=== PATIENT | female | born 1990 | race Caucasian/White ===

== ENCOUNTER 2019-12-20 16:45 | Emergency (ER) | payer OTHER ==
--- NOTE | 2019-12-20 17:15 | ED Physician Documentation ---
PD HPI FEMALE - Stated complaint Stated Complaint: FEMALE - Chief complaint Chief Complaint: UTI - History obtained from History obtained from: Patient - Additional information Additional information: Recently treated for UTI, did not initially know the name of the antibiotic, but it was Macrobid in hindsight. She did have some flank pain with it. On the Macrobid she did fine but dysuria, frequency, hematuria recurred today. 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 HEENT: None Psych: None Musculoskeletal: None Derm: None - Past Surgical History Past Surgical History: No - Present Medications Home Medications: Ambulatory Orders Medication Instructions Recorded Confirmed Phenazopyridine HCl [Pyridium] 200 mg PO TID PRN #6 tablet 12/20/19 Sulfamethoxazole/Trimethoprim 1 each PO BID 10 Days #20 tablet 12/20/19 [Sulfamethoxazole-Tmp Ds Tablet] - Allergies Allergies/Adverse Reactions: Allergies Allergy/AdvReac Type Severity Reaction Status Date / Time No Known Drug Allergies Allergy Verified 12/20/19 16:58 - Social History Does the pt smoke?: No Smoking Status: Never smoker Does the pt drink ETOH?: Yes Does the pt have substance abuse?: No - Immunizations Immunizations are current?: Yes PD ED PE NORMAL - Vitals Vital signs reviewed: Yes - General General: Alert and oriented X 3, No acute distress - Abdomen Abdomen: Soft, Non tender - Back Back: No CVA TTP - Neuro Neuro: Alert and oriented X 3, Normal speech Results - Vitals Vitals: Vital Signs - 24 hr 12/20/19 16:54 Temperature 36.8 C Heart Rate 80 Respiratory 18 Rate Blood Pressure 120/85 H O2 Saturation 98 Oxygen O2 Source Room air - Labs Labs: Laboratory Tests 12/20/19 17:02 Urine Color YELLOW Urine Clarity CLOUDY Urine pH 5.5 Ur Specific [place] >=1.030 H Urine Protein 100 H Urine Glucose (UA) NEGATIVE Urine Ketones NEGATIVE Urine Occult Blood LARGE H Urine Nitrite POSITIVE H Urine Bilirubin NEGATIVE Urine Urobilinogen 0.2 (NORMAL) Ur Leukocyte Esterase MODERATE H Urine RBC TNTC H Urine WBC >25 H Ur Squamous Epith Cells RARE Squamous Urine Bacteria Many H Urine Yeast PRESENT Ur Microscopic Review INDICATED Urine Culture Comments INDICATED Urine HCG, Qual NEGATIVE PD MEDICAL DECISION MAKING - ED course ED course: Given the treatment failure on Macrobid and mild flank pain that she had, wonder if this is early pyelonephritis. Treated with Bactrim and Pyridium. Full 10- day course this time. Culture pending. Also has some yeast, had discharge now gone, given 1 dose of Diflucan. Departure - Departure Disposition: 01 Home, Self Care Clinical Impression: Pyelonephritis Condition: Good Record reviewed to determine appropriate education?: Yes Instructions: Pyelonephritis Dc Prescriptions: Phenazopyridine HCl [Pyridium] 200 mg PO TID PRN #6 tablet PRN Reason: dysuria Sulfamethoxazole/Trimethoprim [Sulfamethoxazole-Tmp Ds Tablet] 1 each PO BID 10 Days #20 tablet Comments: We will culture your urine, the results should be done in 48-72 hours. If an antibiotic change is necessary we will call you. Return if worse in the meantime, especially if you develop increasing flank pain, fevers, or cannot keep down the medication.
[2019-12-20 17:16] LABS: BILIRUBIN,URINE NEGATIVE (NEGATIVE); GLUCOSE, URINE (UA) NEGATIVE (NEGATIVE); KETONES,URINE (UA) NEGATIVE (NEGATIVE); LEUKOCYTE ESTERASE, URINE MODERATE (NEGATIVE); NITRITE,URINE POSITIVE (NEGATIVE); OCCULT BLOOD,URINE LARGE (NEGATIVE); PH,URINE 5.5 PH (5.0-7.5); PROTEIN,URINE 100 mg/dL (NEGATIVE); UROBILINOGEN,URINE 0.2 (NORMAL) E.U./dL (NORMAL)
[2019-12-20 17:19] LABS: CLARITY,URINE CLOUDY (CLEAR); HCG UR QUAL NEGATIVE
[2019-12-20 17:24] LABS: BACTERIA,URINE Many /HPF (None Seen); RBC,URINE TNTC /HPF (0-5); SQUAMOUS EPITHELIAL CELL,UR RARE Squamous (<= Few); YEAST,URINE PRESENT
[2019-12-20] MEDS ORDERED: PHENAZOPYRIDINE 100 MG TABLET PO STA (17:28)
[2019-12-20] MEDS ORDERED: FLUCONAZOLE 100 MG TABLET PO STA (17:28)
[2019-12-20] MEDS ORDERED: SULFAMETH/TRIMETH DS 800/160 MG TABLET PO STA (17:28)
[2019-12-20 17:44] VITALS: BP 130/89
== END 2019-12-20 17:45 | disposition home or self-care (01) ==
LOC: ED 16:45
DX: N12 Tubulo-interstitial nephritis, not specified as acute or chronic (principal)
CPT/HCPCS: 81001; 81025; 87086; 87181; 99283; A9270; 81003

== ENCOUNTER 2020-05-06 04:19 | Emergency (ER) | payer OTHER ==
[2020-05-06 04:32] VITALS: BP 122/74
--- NOTE | 2020-05-06 04:43 | ED Physician Documentation ---
PD HPI HEENT - Stated complaint Stated Complaint: R EAR PX - Chief complaint Chief Complaint: Heent - History obtained from History obtained from: Patient - History of Present Illness Timing - onset: Yesterday Timing - details: Gradual onset, Constant, Waxing and waning Pain level now: 4 Location: Right ear Improves: Nothing Worsens: Swalllowing Associated symptoms: No: Fever, Trismus, Unable to swallow, Facial swelling, Cough Similar symptoms before: Has not had sx before Recently seen: No: Not recently seen - Additional information Additional information: c/o gradual onset right ear pain since yesterday AM. pain has steadily progressed, sharp and radiates down right anterolateral neck. denies h/o similar symptoms, denies injury. she I stilled hydrogen peroxide twice with mild improvement. Review of Systems Constitutional: reports: Reviewed and negative Ears: reports: Ear pain. 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 HEENT: None Psych: None Musculoskeletal: None Derm: None - Past Surgical History Past Surgical History: No - Present Medications Home Medications: Ambulatory Orders Medication Instructions Recorded Confirmed Amox/Clav 875/125 [Augmentin 1 each PO Q12H #14 tablet 05/06/20 875/125 Tab] Bcp 05/06/20 - Allergies Allergies/Adverse Reactions: Allergies Allergy/AdvReac Type Severity Reaction Status Date / Time No Known Drug Allergies Allergy Verified 05/06/20 04:32 - Social History Does the pt smoke?: No Smoking Status: Never smoker Does the pt drink ETOH?: Yes Does the pt have substance abuse?: No - Immunizations Immunizations are current?: Yes - POLST Patient has POLST: No PD ED PE NORMAL - Vitals Vital signs reviewed: Yes - General General: Alert and oriented X 3, No acute distress, Well developed/nourished - HEENT HEENT: Moist mucous membranes, Pharynx benign PD ED PE EXPANDED - HEENT HEENT: R TM dull, R TM bulging. No: R TM red Results - Vitals Vitals: Vital Signs - 24 hr 05/06/20 04:25 Temperature 36.4 C L Heart Rate 68 Respiratory 16 Rate Blood Pressure 122/74 O2 Saturation 98 Oxygen O2 Source Room air PD MEDICAL DECISION MAKING - ED course Complexity details: considered differential, d/w patient ED course: right TM has noticeable bulging, dull light reflex, trace erythema. suspect early AOM, given augmentin with rx for same, advised to f/u PCP in 2-3 days if nit improving, return if worse. Departure - Departure Disposition: 01 Home, Self Care Clinical Impression: Otitis media Condition: Good Instructions: ED Otitis Media Acute Adult Follow-Up: [facility] [Provider Group] Prescriptions: Amox/Clav 875/125 [Augmentin 875/125 Tab] 1 each PO Q12H #14 tablet Discharge Date/Time: 05/06/20 05:05
[2020-05-06] MEDS ORDERED: AMOX/CLAV 875 MG/125 MG TABLET PO STA (04:57)
== END 2020-05-06 05:05 | disposition home or self-care (01) ==
LOC: ED 04:19
DX: H66.91 Otitis media, unspecified, right ear (principal)
CPT/HCPCS: 99282; 99283; A9270

== ENCOUNTER 2020-09-25 11:00 | Outpatient (CLI) | payer OTHER | END 2020-09-25 23:59 | disposition home or self-care (01) | LOC: LAB.N 11:00 | PROVIDERS: ATTEND Physician Assistant Medical | DX: R05 Cough (principal); Z20.822 Contact with and (suspected) exposure to COVID-19 ==

== ENCOUNTER 2021-02-09 04:40 | Emergency (ER) | payer OTHER ==
[2021-02-09 04:48] VITALS: BP 147/87
--- NOTE | 2021-02-09 05:34 | ED Physician Documentation ---
PD HPI NECK PAIN - Stated complaint Stated Complaint: NECK PX - Chief complaint Chief Complaint: General - History obtained from History obtained from: Patient - History of Present Illness Timing - onset: How many years ago (11) Timing - duration: Years Timing - details: Gradual onset, Still present, Waxing and waning Location: Lower, Right Quality: Pain, Spasm, Sharp, Similar to prior episodes Associated symptoms: No: Fever, Weakness, Numbness, Incontinent of urine, Unable to urinate, Hematuria, Incontinent of stool Improves with: Rest, Meds Worsened by: Movement Contributing factors: Twisting Similar symptoms before: Diagnosis (torticollis) Recently seen: Clinic - Additional information Additional information: 30 y/o female without known neck or head injury has had trouble with a stiff neck and pain for the past year. She has had flares of this pain and cyclobenzaprine has helped. She has gone in to see the practitioner at [facility] and has had adjustment of the lumbar spine and neck which helped the lumbar spine but not the neck. She did go back and got a shot of tordal which helped but tonight she has not been able to sleep and has pain radiating down the right arm. Review of Systems Constitutional: denies: Fever Nose: denies: Congestion Cardiac: denies: Chest pain / pressure Respiratory: denies: Dyspnea, Cough GI: denies: Abdominal Pain, Nausea, Vomiting, Constipation, Diarrhea : denies: Dysuria, Frequency Skin: denies: Rash Musculoskeletal: reports: Neck pain, Extremity pain. 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 HEENT: None Psych: None Musculoskeletal: None Derm: None - Past Surgical History Past Surgical History: No - Present Medications Home Medications: Ambulatory Orders Medication Instructions Recorded Confirmed Amox/Clav 875/125 [Augmentin 1 each PO Q12H #14 tablet 05/06/20 875/125 Tab] Bcp 05/06/20 Cyclobenzaprine [Flexeril] 10 mg PO TID PRN #20 tablet 02/09/21 HYDROcod/ACETAM 5/325 [[place] 5/325] 1 - 2 tablet PO Q6H PRN #14 tablet 02/09/21 - Allergies Allergies/Adverse Reactions: Allergies Allergy/AdvReac Type Severity Reaction Status Date / Time No Known Drug Allergies Allergy Verified 02/09/21 04:46 - Social History Does the pt smoke?: No Smoking Status: Never smoker Does the pt drink ETOH?: Yes Does the pt have substance abuse?: No - Immunizations Immunizations are current?: Yes - POLST Patient has POLST: No PD ED PE NORMAL - Vitals Vital signs reviewed: Yes (hypertensive ) - General General: Alert and oriented X 3, No acute distress, Well developed/nourished - HEENT HEENT: Atraumatic, PERRL, EOMI - Neck Neck: Supple, no meningeal sign, No bony TTP, Other (right trapezius tenderness that extends to the insertion to the occiput and over to the insertion of the spinal accessory over the supraspinatous. 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, No motor deficit, No sensory deficit, Normal speech Eye Opening: Spontaneous Motor: Obeys Commands Verbal: Oriented GCS Score: 15 - Psych Psych: Normal mood, Normal affect Results - Vitals Vitals: Vital Signs - 24 hr 02/09/21 04:46 Temperature 36.9 C Heart Rate 71 Respiratory 18 Rate Blood Pressure 147/87 H O2 Saturation 98 Oxygen O2 Source Room air PD MEDICAL DECISION MAKING - ED course Complexity details: reviewed old records, reviewed results, re-evaluated patient, considered differential, d/w patient ED course: 30 y/o female with exacerbation of chronic torticollis is administered PO decadron and IM tordal and we will put her on a short course of pain medication and muscle relaxant. Departure - Departure Disposition: 01 Home, Self Care Clinical Impression: Torticollis, Cervical radiculopathy Condition: Stable Instructions: ED Spasm Neck No Injury, ED Cervical Radiculopathy Follow-Up: [facility]LIN[facility] [Provider Group] Prescriptions: Cyclobenzaprine [Flexeril] 10 mg PO TID PRN #20 tablet PRN Reason: Spasms HYDROcod/ACETAM 5/325 [[place] 5/325] 1 - 2 tablet PO Q6H PRN #14 tablet PRN Reason: Pain Comments: Yonas, today it looks like the radiation of the pain down your arm represents cervical radiculopathy or a pinched nerve in the neck. This is an indication to do an MRI if you do not have relief within the month. Today we have given you a single dose of decadron and tordal and there is a prescription for flexeril and norco that has been e-scribed to [facility] in [place]. Discharge Date/Time: 02/09/21 06:04
[2021-02-09] MEDS ORDERED: DEXAMETHASONE 10 MG/ML VIAL PO STA (05:42)
[2021-02-09] MEDS ORDERED: CHERRY SYRUP 10 ML UDC PO ONE (05:42)
[2021-02-09] MEDS ORDERED: KETOROLAC 60 MG/2 ML VIAL IM STA (05:42)
== END 2021-02-09 06:04 | disposition home or self-care (01) ==
LOC: ED 04:40
DX: M43.6 Torticollis (principal); M54.12 Radiculopathy, cervical region
CPT/HCPCS: 96372; 99283; 99284; A9270

== ENCOUNTER 2022-07-21 17:52 | Emergency (ER) | payer OTHER ==
--- NOTE | 2022-07-21 18:24 | ED Physician Documentation ---
PD HPI LOWER EXT INJURY - Stated complaint Stated Complaint: LT ANKLE INJURY - Chief complaint Chief Complaint: Ext Problem - History obtained from History obtained from: Patient - History of Present Illness PD HPI LOW EXT INJURY LOCATION: Left, Ankle Type of injury: Twist Timing - onset: Today Timing - details: Abrupt onset, Still present Worsened by: Moving, Palpating Associated symptoms: Weakness (pain limits the full ROM of the ankle.), Swelling Contributing factors: No: Anticoagulated Similar symptoms before: Has not had sx before Review of Systems Skin: denies: Abrasion (s), Laceration (s) Musculoskeletal: reports: Joint swelling Neurologic: denies: Focal weakness, Numbness PD PAST MEDICAL HISTORY - Past Medical History Cardiovascular: None Respiratory: None Neuro: None Endocrine/Autoimmune: None GI: None 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 : None HEENT: None Psych: None Musculoskeletal: None Derm: None - Past Surgical History Past Surgical History: No - Present Medications Home Medications: Ambulatory Orders Medication Instructions Recorded Confirmed Fluoxetine HCl [Prozac] 40 mg ORAL ONCE 07/21/22 07/21/22 - Allergies Allergies/Adverse Reactions: Allergies Allergy/AdvReac Type Severity Reaction Status Date / Time No Known Drug Allergies Allergy Verified 02/09/21 04:46 - Social History Does the pt smoke?: No Smoking Status: Never smoker Does the pt drink ETOH?: Yes Does the pt have substance abuse?: No - Immunizations Immunizations are current?: Yes - POLST Patient has POLST: No PD ED PE NORMAL - Vitals Vital signs reviewed: Yes - General General: Alert and oriented X 3, No acute distress, Well developed/nourished - Derm Derm: Normal color, Warm and dry - Extremities Extremities: Other (left lateral ankle and proximal foot with swelling and tenderness. No gross laxity with inversion stress. ) - Neuro Neuro: No motor deficit, No sensory deficit Results - Vitals Vitals: Oxygen O2 Source Room air - Rads (name of study) left ankle Relevant Findings:: Prelim report reviewed, EMP independent interpretation of test (no fractures and mortis appears in good position. ), See rad report PD Medical Decision Making - ED course Complexity details: considered differential (inversion injury stepping onto edge of step. Pain laterally. Too painful for walking. Denies other injury. ), d/w patient Departure - Departure Disposition: 01 Home, Self Care Clinical Impression: Ankle sprain Qualifiers: Encounter type: initial encounter Involved ligament of ankle: anterior talofibular ligament Laterality: left Qualified Code(s): S93.492A - Sprain of other ligament of left ankle, initial encounter Condition: Stable Record reviewed to determine appropriate education?: Yes Instructions: ED Sprain Ankle Comments: Your x-ray does not show any fractures in my view. The radiology final report is not yet resulted. The x-ray of your ankle does incorporate enough of the foot to feel there are no fractures there either. This does seem to be a ankle sprain but still can hurt quite a bit and take a while to heal. To begin with ice elevate and rest your ankle often to reduce swelling. Use the ankle brace to support movement. Use crutches for nonweightbearing initially until improved enough to walk on it. As it is improving its okay to start weightbearing. I would continue with ankle support when walking or activity for even up to 3 weeks until fully healed. I would not anticipate improvement over the next several days and then more so over the first week to week and a half. However can be several weeks or more to be fully back to normal if there is partial tears of the ligaments. Tylenol ibuprofen as needed for pains. Follow-up with your primary care or orthopedic clinic if not improving in the expected timeframe. Forms: Activity restrictions Discharge Date/Time: 07/21/22 19:18
[2022-07-21] MEDS ORDERED: IBUPROFEN 600 MG TABLET PO STA (18:41)
--- NOTE | 2022-07-21 19:01 | XRAY Report ---
PROCEDURE: Ankle 3 View LT INDICATIONS: Trauma TECHNIQUE: 3 views of the ankle were acquired. COMPARISON: None. FINDINGS: Bones: No fractures or dislocations. Ankle mortise is normally aligned. No suspicious bony lesions . Soft tissues: No tibiotalar joint effusion. Achilles tendon appears normal. IMPRESSION: Intact left ankle. Reviewed by: Sylvia Root MD on 07/21/2022 5:59 PM JACQUES Approved by: Sylvia Root MD on 07/21/2022 5:59 PM JACQUES Station ID: [id number]
[2022-07-21 19:19] VITALS: BP 137/71
== END 2022-07-21 19:18 | disposition home or self-care (01) ==
LOC: ED 17:52
DX: S93.492A Sprain of other ligament of left ankle, initial encounter (principal); W10.9XXA Fall (on) (from) unspecified stairs and steps, initial encounter; X50.1XXA Overexertion from prolonged static or awkward postures, initial encounter; Y93.89 Activity, other specified
CPT/HCPCS: 73610; 99283; A9270

== ENCOUNTER 2022-10-03 08:00 | Outpatient (CLI) | payer OTHER ==
[2022-10-03 15:47] LABS: BILIRUBIN,URINE NEGATIVE (NEGATIVE); GLUCOSE, URINE (UA) NEGATIVE (NEGATIVE); KETONES,URINE (UA) NEGATIVE (NEGATIVE); LEUKOCYTE ESTERASE, URINE NEGATIVE (NEGATIVE); NITRITE,URINE NEGATIVE (NEGATIVE); OCCULT BLOOD,URINE TRACE-LYSE (NEGATIVE); PROTEIN,URINE NEGATIVE (NEGATIVE); UROBILINOGEN,URINE 0.2 (NORMAL) E.U./dL (NORMAL)
[2022-10-03 15:49] LABS: CLARITY,URINE CLOUDY (CLEAR)
[2022-10-03 16:06] LABS: AMORPHOUS SEDIMENT,UR Marked /LPF; BACTERIA,URINE Rare /HPF (None Seen); RBC,URINE 0-5 /HPF (0-5); SQUAMOUS EPITHELIAL CELL,UR FEW Squamous (<= Few); WBC,URINE 0-3 /HPF (0-5)
== END 2022-10-03 23:59 | disposition home or self-care (01) ==
LOC: LAB.WC 08:00
PROVIDERS: ATTEND Obstetrics & Gynecology
DX: Z34.90 Encounter for supervision of normal pregnancy, unspecified, unspecified trimester (principal)
CPT/HCPCS: 81001; 87086

== ENCOUNTER 2022-10-14 22:55 | Outpatient (CLI) | payer OTHER ==
--- NOTE | 2022-10-15 10:49 | Ultrasound Report ---
PROCEDURE: OB First Trimester w/TV INDICATIONS: POSITIVE TEST OUTSIDE/PRIOR DATING DATA: Last menstrual period (LMP): 08/13/2022. LMP-based estimated date of delivery (COLEEN): 05/20/2023. First dating scan (date and location): 10/14/2022. Estimated date of delivery (COLEEN) from first dating scan: 05/18/2023. TECHNIQUE: Real-time scanning was performed of the fetus and maternal pelvic organs, with image documentation. Endovaginal scanning was also performed to better visualize the fetus and maternal ovaries. COMPARISON: None. FINDINGS: Intrauterine gestational sac present. Embryo: Present, measuring 2.4 cm, corresponding to 9 weeks 1 day. Heart rate: 171 bpm. Other: No perigestational fluid collection. Measurement variability in dating: +/- 4 weeks by LMP, +/- 7 days by mean sac diameter (use before 6 weeks gestation if crown-rump length not able to be measured), +/- 5 days by crown-rump length (6-12 weeks gestation). Maternal organs: Ovaries appear within normal limits. IMPRESSION: Single living intrauterine at 9 weeks 1 day, COLEEN of 05/18/2023. Findings are concordant with dating by LMP. Reviewed by: Christiano Rivas on 10/15/2022 10:47 AM PDT Approved by: Christiano Rivas on 10/15/2022 10:47 AM PDT Station ID: [id number]
== END 2022-10-14 22:56 | disposition home or self-care (01) ==
LOC: DI 22:55
PROVIDERS: ATTEND Obstetrics & Gynecology
DX: Z34.91 Encounter for supervision of normal pregnancy, unspecified, first trimester (principal)

== ENCOUNTER 2022-10-31 08:00 | Outpatient (CLI) | payer OTHER ==
[2022-10-31 21:26] LABS: CHLAMYDIA TRACHOMATIS DNA NEGATIVE (NEGATIVE); NEISSERIA GONORRHOEAE DNA NEGATIVE (NEGATIVE); TRICHOMONAS VAGINALIS DNA NEGATIVE (NEGATIVE)
== END 2022-10-31 23:59 | disposition home or self-care (01) ==
LOC: LAB.WC 08:00
PROVIDERS: ATTEND Obstetrics & Gynecology
DX: Z11.3 Encounter for screening for infections with a predominantly sexual mode of transmission (principal)
CPT/HCPCS: 87491; 87591; 87661

== ENCOUNTER 2022-11-27 10:31 | Observation (INO) | payer OTHER ==
[~2022-11-27 10:31] MED LIST: FLUoxetine 10 MG CAPSULE PO ONE
[2022-11-27] MEDS ORDERED: LACTATED RINGERS 500 ML IV ONE (10:50)
[2022-11-27] MEDS ORDERED: PROMETHAZINE 25 MG SUPP PR PRN (10:52)
[2022-11-27] MEDS ORDERED: SCOPOLAMINE PATCH TOP PRN (10:52)
[2022-11-27] MEDS ORDERED: DEXTROSE 5%-LACTATED RINGERS 1,000 ML IV SCH (11:00)
[2022-11-27 11:24] LABS: BASOPHILS % (AUTO) 0.3 %; EOSINOPHILS # (AUTO) 0.2 10^3/uL (0.0-0.7); EOSINOPHILS % (AUTO) 1.2 %; HCT - HEMATOCRIT 37.4 % (37.0-47.0); HGB - HEMOGLOBIN 12.5 g/dL (12.0-16.0); LYMPHOCYTES # (AUTO) 2.6 10^3/uL (1.5-3.5); MEAN CORPUSCULAR HEMOGLOBIN 29.3 pg (27.0-31.0); MEAN CORPUSCULAR HGB CONC 33.4 g/dL (32.0-36.0); MEAN CORPUSCULAR VOLUME 87.8 fL (81.0-99.0); MEAN PLATELET VOLUME 10.3 fL (7.9-10.8); MONOCYTES # (AUTO) 0.6 10^3/uL (0.0-1.0); MONOCYTES % (AUTO) 4.9 %; NEUTROPHILS # (AUTO) 9.5 10^3/uL (1.5-6.6); NEUTROPHILS % (AUTO) 73.1 %; PLT - PLATELET COUNT 300 10^3/uL (130-450); RED BLOOD COUNT 4.26 10^6/uL (4.20-5.40); RED CELL DISTRIBUTION WIDTH 12.3 % (12.0-15.0)
[2022-11-27 11:51] VITALS: O2SAT 99
--- NOTE | 2022-11-27 12:08 | HISTORY & PHYSICAL EXAMINATION ---
History and Physical - History and Physical HPI: 32y/o G-1 COLEEN 05/20/2023 Here for routine ob at 15+1 wks. Having N/V would like to discuss other RX, constipation is worse, HOWELL on and off and no appetite. Feels like not drinking enough she says she tries but wants to know what else she can do. Will walk over today and do lab work. Informed of FAS and will order today. ...................................................................Bonita Lux November 27, 2022 9:52 AM. Patient is miserable, vomiting. unable to keep any fluids down at all. not able to eat. ondansetron does not really help consistently. takes fluxetine and is able to get that down. constipation is quite bad. she has no appetite and then occassionally is very hungry. Not at all how she expected her early to be like. sad and frustrated. Allergies: Allergies Reviewed: Done No Known Allergies Medications: Meds Reviewed: Done Valtrex 500 mg tablet (valacyclovir) 1 tablet by mouth twice a day * aspirin 81 81mg tablet 1 tablet by mouth once a day ondansetron HCl 4 mg tablet (ondansetron hcl) 1 tablet by mouth six times a day as needed * vitamin Prozac 40 mg capsule (fluoxetine) Problems: 15 weeks gestation of (ETF81-W6U.15) Hyperemesis gravidarum antepartum (ICD-643.93) (OZA11-W87.0) Unspecified pre-existing hypertension complicating , second trimester (ICD-642.03) (SWW57-E26.912) Anxiety depression (ICD-300.4) (GDY49-C95.8) Herpesviral vulvovaginitis (JYZ71-M12.04) Supervision of normal (ICD-V22.1) (URV59-U89.90) Past Medical History: Reviewed and updated today: Depression/anxiety seizures as teen, 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 no diagnosis ever made after extensive work up. genital herpes. takes valtrex daily hypertension - never needed medication. better when she left the [employer]. Social History Summary: to [place]. grew up in [place]. Risk Factors-[facility]: Smoked Tobacco Use: Never smoker Smokeless Tobacco Use: Never Vaping / e-cigarette use: Never Passive Smoke Exposure: no HIV High Risk Behavior: no Exercise: no Alcohol Use: no Drug Use: no Marijuana Use: no Vital Signs: Patient Profile: 32 Years Old Female Height: 69 inches Weight: 244 pounds BMI: 36.16 BP sittin / 80 Cuff size: large Pt. in pain? no Vitals Entered By: Bonita Lux (November 27, 2022 9:52 AM) Meds Reviewed: Done Allergies Reviewed: Done No known allergies: T [DR-Umspretx-Kimmp-[facility]] Flowsheet View for Follow-up Visit Estimated weeks of gestation: 15 03/02 Weight: 244 Blood pressure: 130 / 80 Nausea/vomiting: freq Edema: 0 FHR: 150 Comment: very miserable with n/v. will admit for observation, hydration. still needs labs. LMP: 08/13/22 COLEEN by LMP: 05/20/23 US: 10/15/2022 9+1 Final COLEEN: 05/18/2023 Problems: BMI>30 Pre- Weight:255.6 BMI: 37.88 PAP: due GC/CT: collected 10/31- Negative HSV: both her and partner Genetic testing: [ ] ordered Oct Covid: vaccinated Flu: given 10/31 FAS: ordered 11/27 [employer] Review of Systems General: Complains of fatigue, constipation. Denies fevers, chills, weight loss. Gastrointestinal: Complains of nausea, vomiting, heartburn, change in bowel habits. Genitourinary: Denies discharge, blood in urine. Psychiatric: Complains of lack of energy, decreased appetite. Physical Constitutional: alert, no acute distress, appropriate dress. Skin: normal turgor, normal color. Respiratory: no respiratory distress. Abdomen: nondistended, nontender. Psych: affect and mood appropriate, normal interaction, good eye contact. deferred pelvic exam Impression & Recommendations: Problem # 1: Hyperemesis gravidarum antepartum (ICD-643.93) (BHQ62-C99.0) admit for observation, labs, medication, hydration until she is able to keep something down. patient agrees. happy to do anything to feel better. Problem # 2: Unspecified pre-existing hypertension complicating , second trimester (ICD-642.03) (RIM05-L28.912) blood pressure normal today. taking aspirin. P: 0 A: 0 LMP: 08/13/2022 EDC: 05/20/2023 Height: 69 (10/31/2022 1:53:23 PM) Weight: 244 Weight (pre-): 255.6 (10/03/2022 9:40:53 AM) Chlamydia: NEGATIVE (10/31/2022 3:06:00 PM) Is pt sexually active? yes Chlamydia: NEGATIVE (10/31/2022 3:06:00 PM)
[2022-11-27 12:54] LABS: ESTIMATED AVERAGE GLUCOSE 97 mg/dL (70-100)
[2022-11-27 15:06] LABS: ALBUMIN 3.6 g/dL (3.2-5.5); ALBUMIN/GLOBULIN RATIO 1.6 (1.0-2.2); BILIRUBIN,TOTAL 0.2 mg/dL (0.2-1.0); CALCIUM 9.2 mg/dL (8.5-10.3); CREATININE 0.5 mg/dL (0.6-1.3); TOTAL PROTEIN 5.9 g/dL (6.4-8.9)
[2022-11-27 16:38] VITALS: BP 119/60
--- NOTE | 2022-11-27 17:58 | DISCHARGE SUMMARY ---
Discharge Summary Admit Date: 11/27/22 Discharge Date: 11/27/22 Discharging Provider: Gloria Perez MD Code Status: Attempt Resuscitation Discharge Disposition: 01 Home, Self Care - DIAGNOSES Admission Diagnoses: hyperemesis gravidarum. improved. - HPI History of Present Illness: Yonas has been unable to keep anything down for days. She is exhausted and tired of vomiting. She came to the office today and was wretching in the bathroom. She has zofran at home but it makes her very constipated and so that is an issue. And it does not work that well for her. She would very much like to feel better. - HOSPITAL COURSE Hospital Course: She was admitted for observation, given iv fluids. had labs done, which were n ormal. She had a rectal dose of phenergan after which she slept for a few hours and woke up feeling better. She also had a scopolomine patch placed. She was able to eat when she woke up and was able to go home. - ALLERGIES Allergies/Adverse Reactions: Allergies Allergy/AdvReac Type Severity Reaction Status Date / Time No Known Drug Allergies Allergy Verified 02/09/21 04:46 - MEDICATIONS Home Medications: Ambulatory Orders Medication Instructions Recorded Confirmed Fluoxetine HCl [Prozac] 40 mg ORAL ONCE 07/21/22 07/21/22 Docusate Sodium 100Mg Capsule 100 - 200 mg PO BID PRN #60 cap 11/27/22 [Colace 100Mg Capsule] Famotidine [Pepcid] 20 mg PO BID PRN #90 tablet 11/27/22 Promethazine Supp [Phenergan Supp] 25 mg MN BID PRN #30 supp 11/27/22 - PHYSICAL EXAM AT DISCHARGE General Appearance: positive: No acute distress, Alert Respiratory: positive: No respiratory distress - LABS Result Diagrams: 11/27/22 11:05 11/27/22 11:53 - DIAGNOSTIC IMAGING Diagnostic Imaging Results Comments: none - FOLLOW UP Follow Up: In clinic in 4 weeks. sooner if she is vomiting and unable to keep liquids down. - TIME SPENT Time Spent in Discharge (Minutes): 15
[2022-11-27] MEDS ORDERED: FLUoxetine 10 MG CAPSULE PO SCH (21:00)
[2022-11-28 02:08] LABS: HBsAG SCREEN Negative (Negative); HCV AB Non Reactive (Non Reactive); HIV SCREEN 4TH GENERATION Non Reactive (Non Reactive)
[2022-11-28 07:10] LABS: RPR Non Reactive (Non Reactive)
[2022-11-28 08:10] LABS: VARICELLA-ZOSTER AB IGG 414 index (Immune >165)
== END 2022-11-27 18:30 | disposition home or self-care (01) ==
LOC: FBP 10:31
PROVIDERS: ADMIT Obstetrics & Gynecology; ATTEND Obstetrics & Gynecology
DX: O21.0 Mild hyperemesis gravidarum (principal); O10.912 Unspecified pre-existing hypertension complicating pregnancy, second trimester; O99.342 Other mental disorders complicating pregnancy, second trimester; F32.A Depression, unspecified; F41.9 Anxiety disorder, unspecified; Z3A.15 15 weeks gestation of pregnancy; Z79.82 Long term (current) use of aspirin; Z79.899 Other long term (current) drug therapy; O9A.212 Injury, poisoning and certain other consequences of external causes complicating pregnancy, second trimester; O99.612 Diseases of the digestive system complicating pregnancy, second trimester; K59.03 Drug induced constipation; T45.0X5A Adverse effect of antiallergic and antiemetic drugs, initial encounter; Y92.009 Unspecified place in unspecified non-institutional (private) residence as the place of occurrence of the external cause; O98.312 Other infections with a predominantly sexual mode of transmission complicating pregnancy, second trimester; A60.04 Herpesviral vulvovaginitis
CPT/HCPCS: 36415; 80053; 83036; 84443; 85025; 86592; 86762; 86787; 86803; 86850; 86900; 86901; 87340; 87389; 96360; 96361; A9270; G0378; J3490; J7120; J8498

== ENCOUNTER 2022-12-26 08:00 | Outpatient (CLI) | payer OTHER ==
[2022-12-26 15:55] LABS: BILIRUBIN,URINE NEGATIVE (NEGATIVE); GLUCOSE, URINE (UA) NEGATIVE (NEGATIVE); KETONES,URINE (UA) NEGATIVE (NEGATIVE); LEUKOCYTE ESTERASE, URINE NEGATIVE (NEGATIVE); NITRITE,URINE NEGATIVE (NEGATIVE); OCCULT BLOOD,URINE NEGATIVE (NEGATIVE); PH,URINE 7.5 PH (5.0-7.5); PROTEIN,URINE NEGATIVE (NEGATIVE); UROBILINOGEN,URINE 0.2 (NORMAL) E.U./dL (NORMAL)
[2022-12-26 16:17] LABS: BACTERIA,URINE Rare /HPF (None Seen); CLARITY,URINE CLEAR (CLEAR); RBC,URINE None Seen /HPF (0-5); SQUAMOUS EPITHELIAL CELL,UR MOD Squamous (<= Few); WBC,URINE 0-3 /HPF (0-5)
[2022-12-26 16:18] LABS: AMORPHOUS SEDIMENT,UR Few /LPF
== END 2022-12-26 23:59 | disposition home or self-care (01) ==
LOC: LAB.WC 08:00
PROVIDERS: ATTEND Obstetrics & Gynecology
DX: Z34.90 Encounter for supervision of normal pregnancy, unspecified, unspecified trimester (principal)
CPT/HCPCS: 81001; 87086

== ENCOUNTER 2022-12-30 10:59 | Outpatient (CLI) | payer OTHER ==
--- NOTE | 2022-12-30 16:05 | Ultrasound Report ---
PROCEDURE: OB Detailed Eval INDICATIONS: HYPERTENSION COMPLICATING OUTSIDE/PRIOR DATING DATA: Last menstrual period (LMP): 08/13/2022. LMP-based estimated date of delivery (COLEEN): 05/20/2023. First dating scan (date and location): 10/14/2022. Estimated date of delivery (COLEEN) from first dating scan: 05/18/2023. The below data below was generated using the sonographic COLEEN of 05/18/2023 TECHNIQUE: Real-time scanning was performed of the fetus, with image documentation and biometric measurements. Endovaginal scanning: Not performed COMPARISON: 10/14/2022 FINDINGS: General: A single living intrauterine gestation is present. Presentation: Variable Placenta: Placental position is posterior, without previa. Amniotic fluid index: 11.3 cm, within normal limits for gestational age. heart rate: 140 beats per minute. Maternal cervical canal: Closed and 7.7 cm long; normal length is 2.5 cm or more. biometrics: Biparietal diameter: 4.9 cm, 20 weeks 6 days, 76th percentile Head circumference: 18.47 m, 20 weeks 5 days, 69th percentile Abdominal circumference: 16.2 cm, 21 weeks 2 days, 81st percentile Femur length: 3.5 cm, 20 weeks 6 days, 68th percentile Estimated gestational age from initial scan: 20 weeks 1 day Composite gestational age from present scan: 20 weeks 4 days Estimated weight and percentile: 396 g, 90th percentile Measurement variability in biometric dating: +/- 10 days from 12-20 weeks gestation, +/- 2 weeks from 20-30 weeks gestation, +/- 3 weeks at 30 weeks gestation or later. Anatomic survey: Neuro: Ventricles are normal at less than 10 mm. Cisterna magna is normal at 3-11 mm. Cerebellum i s normal in size and morphology. There are bilateral choroid plexus cysts, the right measuring 8 mm in the left measuring 9 mm. Nuchal skin fold: Normal at less than 6 mm between 14 and 20 weeks gestational age. Face: Nose and lips, appear within normal limits. Facial profile was not seen. Spine: No evidence for spina bifida. Heart: 4-chambered heart is present. Cardiac outflow tracts were not well imaged. Diaphragm: Diaphragm is intact. Stomach: Left-sided stomach is present. Kidneys: No hydronephrosis. Normal is less than 5 mm in 2nd trimester, less than 7 mm in 3rd trimester. Cord: 3 vessel cord has orthotopic insertion. Bladder: Normal in size. Extremities: All 4 extremities are visualized. IMPRESSION: 1. Single intrauterine with appropriate growth. 2. Estimated weight at the 90th percentile. 3. There several normal structures seen, however cardiac outflow tracts and facial profil e were not well seen. 4. There are bilateral choroid plexus cysts which are likely incidental. 5. Follow-up for completion of anatomic survey in one week is recommended. Reviewed by: Sylvia Root MD on 12/30/2022 4:03 PM PST Approved by: Sylvia Root MD on 12/30/2022 4:03 PM PST Station ID: [id number]
== END 2022-12-30 11:00 | disposition home or self-care (01) ==
LOC: DI 10:59
PROVIDERS: ATTEND Obstetrics & Gynecology
DX: O10.912 Unspecified pre-existing hypertension complicating pregnancy, second trimester (principal); Z3A.20 20 weeks gestation of pregnancy

== ENCOUNTER 2023-01-01 17:11 | Observation (INO) | payer OTHER ==
[2023-01-01] MEDS ORDERED: LACTATED RINGERS 1,000 ML IV ONE (17:46)
[2023-01-01] MEDS ORDERED: PROCHLORPERAZINE 10 MG/2 ML VIAL IVP PRN (17:47)
[2023-01-01] MEDS ORDERED: SCOPOLAMINE PATCH TOP PRN (17:47)
[2023-01-01] MEDS ORDERED: DEXTROSE 5%-LACTATED RINGERS 1,000 ML IV SCH (18:00)
[2023-01-01 18:33] LABS: ALBUMIN 3.8 g/dL (3.2-5.5); ALBUMIN/GLOBULIN RATIO 1.3 (1.0-2.2); BILIRUBIN,TOTAL 0.3 mg/dL (0.2-1.0); CALCIUM 9.2 mg/dL (8.5-10.3); CREATININE 0.5 mg/dL (0.6-1.3); POTASSIUM 3.6 mmol/L (3.5-4.5); TOTAL PROTEIN 6.7 g/dL (6.4-8.9)
[2023-01-01] MEDS ORDERED: MAGNESIUM SULFATE 1 GM in SODIUM CHLORIDE 0.9% 50 ML IV ONE (19:30)
--- NOTE | 2023-01-01 19:34 | HISTORY & PHYSICAL EXAMINATION ---
Admit History - Visit Reason Visit Reason: Other (hyperemesis at 20 weeks.) - : 1 Care: positive: [facility] Risk/History: positive: Other (obesity.) Smoking Status: Never smoker - Other Maternal History Other Maternal History: anatomy screen Friday. some views are missing. follow up ordered. nothing abnormal seen. Meds/Allgy - Home Medications Home Medications: Ambulatory Orders Medication Instructions Recorded Confirmed Fluoxetine HCl [Prozac] 40 mg ORAL ONCE 07/21/22 07/21/22 Docusate Sodium 100Mg Capsule 100 - 200 mg PO BID PRN #60 cap 11/27/22 [Colace 100Mg Capsule] Famotidine [Pepcid] 20 mg PO BID PRN #90 tablet 11/27/22 Promethazine Supp [Phenergan Supp] 25 mg [place] BID PRN #30 supp 11/27/22 - Allergies Allergies/Adverse Reactions: Allergies Allergy/AdvReac Type Severity Reaction Status Date / Time No Known Drug Allergies Allergy Verified 02/09/21 04:46 Review of Systems - Constitutional Constitutional: reports: Fatigue, Malaise - Respiratory Respiratory: denies: SOB at rest - Gastrointestinal Gastrointestinal: reports: Abdominal pain (low abd cramping. last bm yesterday.), Vomiting, Bile emesis, Poor appetite. denies: Nausea (not nauseated just vomits all of a sudden. awful. now just bile so she came in.) Physical - Abdominal Exam Vital Signs: vital signs per RN. appears tired and sad. not vomiting while I was in room with her. abdomen soft. FHT in normal range. only 20 weeks so no strip done. Plan for Labor - Plan For Labor I expect patient to be DC'd or transferred within 96 hours.: Yes Plan for Labor: admit for observation. hydration, compazine, scopalamine, iv fluids. low in magnesium so will replace. if she can stop vomiting, she can go home tonight, regardless of whether or not she eats. I don't really want her to try to eat until tomorrow am to take a break. does have zofran at home but it was not helping. has phenergan suppository but did not try as makes her want to poop so she waits until after she has gone. had a scope patch on and took off yesterday. seems to have been helping some. will place now. time spent with her 30 min
--- NOTE | 2023-01-01 22:42 | DISCHARGE SUMMARY ---
Discharge Summary Admit Date: 01/01/23 Discharge Date: 01/01/23 Code Status: Attempt Resuscitation Condition at Discharge: Good Discharge Disposition: 01 Home, Self Care - DIAGNOSES Admission Diagnoses: hyperemesis, hypomagnesemia Discharge Diagnoses with Status of Each Condition: both improved - HPI History of Present Illness: miserable with her vomiting. bilous now. came for hydration and iv meds. - HOSPITAL COURSE Hospital Course: IV hydration and iv magnesium given. compazine and scope patch. felt better. - ALLERGIES Allergies/Adverse Reactions: Allergies Allergy/AdvReac Type Severity Reaction Status Date / Time No Known Drug Allergies Allergy Verified 02/09/21 04:46 - MEDICATIONS Home Medications: Ambulatory Orders Medication Instructions Recorded Confirmed Fluoxetine HCl [Prozac] 40 mg ORAL ONCE 07/21/22 07/21/22 Docusate Sodium 100Mg Capsule 100 - 200 mg PO BID PRN #60 cap 11/27/22 [Colace 100Mg Capsule] Famotidine [Pepcid] 20 mg PO BID PRN #90 tablet 11/27/22 Promethazine Supp [Phenergan Supp] 25 mg [place] BID PRN #30 supp 11/27/22 - PHYSICAL EXAM AT DISCHARGE General Appearance: positive: No acute distress Extremities: positive: No pedal edema Physical Exam Other/Comments: no longer appears miserable. happy now. - LABS Result Diagrams: 01/01/23 18:14 - FOLLOW UP Follow Up: as scheduled - TIME SPENT Time Spent in Discharge (Minutes): 10
[2023-01-01 23:11] VITALS: BP 122/60
== END 2023-01-01 22:40 | disposition home or self-care (01) ==
LOC: WFO 17:11 → FBP 17:12 → WFO 19:15
PROVIDERS: ADMIT Obstetrics & Gynecology; ATTEND Obstetrics & Gynecology
DX: O21.1 Hyperemesis gravidarum with metabolic disturbance (principal); E83.42 Hypomagnesemia; Z3A.20 20 weeks gestation of pregnancy
CPT/HCPCS: 36415; 80053; 83735; 96361; 96365; 96375; G0378; J3490; J7040; J7120; 99214

== ENCOUNTER 2023-01-15 17:12 | Outpatient (CLI) | payer OTHER ==
[2023-01-15 20:01] LABS: BACTERIAL VAGINOSIS DNA NEGATIVE (NEGATIVE); CANDIDA GLABRATA DNA NEGATIVE (NEGATIVE); CANDIDA GROUP DNA NEGATIVE (NEGATIVE); CANDIDA KRUSEI DNA NEGATIVE (NEGATIVE); TRICHOMONAS VAGINALIS DNA NEGATIVE (NEGATIVE)
--- NOTE | 2023-01-16 14:17 | Ultrasound Report ---
PROCEDURE: OB F/U or Repeat INDICATIONS: SUPERVISION OF OUTSIDE/PRIOR DATING DATA: Last menstrual period (LMP): 08/13/2022. LMP-based estimated date of delivery (COLEEN): 05/20/2023. First dating scan (date and location): 10/14/2022. Estimated date of delivery (COLEEN) from first dating scan: 05/18/2023. The below data below was generated using the study generated COLEEN of 05/18/2023 TECHNIQUE: Real-time scanning was performed of the fetus, with image documentation and biometric measurements. Endovaginal scanning: Not performed. COMPARISON: 12/30/2022 and 10/14/2022 FINDINGS: General: A single living intrauterine gestation is present. Presentation: Vertex Placenta: Placental position is posterior, without previa. Amniotic fluid index: 16.2 cm, 64.9% for gestational age. heart rate: 140 beats per minute. Maternal cervical canal: Closed and is visually within normal limits. Estimated gestational age from initial scan: 22 weeks, 3 days Other: Ventricular outflow tracts, chest, stomach, bilateral kidneys and urinary bladder are vi sualized and are within normal limits. facial profile is visualized and is within normal limits . IMPRESSION: 1. Single live intrauterine gestation with fetus in vertex presentation. heart rate is 140 bpm. Normal amount of amniotic fluid at 16.2 cm. 2. Normal facial profile and ventricular outflow tracts seen on current study. Reviewed by: Gary Melton MD on 01/16/2023 2:16 PM PST Approved by: Gary Melton MD on 01/16/2023 2:16 PM PST Station ID: [id number]
== END 2023-01-15 17:13 | disposition home or self-care (01) ==
LOC: LAB.WC 17:12
PROVIDERS: ATTEND Obstetrics & Gynecology
DX: O99.891 Other specified diseases and conditions complicating pregnancy (principal); N89.8 Other specified noninflammatory disorders of vagina; Z3A.22 22 weeks gestation of pregnancy
CPT/HCPCS: 81514; 87661; 87801

== ENCOUNTER 2023-02-16 14:28 | Outpatient (CLI) | payer OTHER ==
[2023-02-16 14:58] VITALS: O2SAT 97
[2023-02-16 15:05] LABS: BASOPHILS % (AUTO) 0.2 %; EOSINOPHILS # (AUTO) 0.1 10^3/uL (0.0-0.7); HCT - HEMATOCRIT 34.5 % (37.0-47.0); HGB - HEMOGLOBIN 11.3 g/dL (12.0-16.0); LYMPHOCYTES # (AUTO) 2.4 10^3/uL (1.5-3.5); LYMPHOCYTES % (AUTO) 18.8 %; MEAN CORPUSCULAR HEMOGLOBIN 29.5 pg (27.0-31.0); MEAN CORPUSCULAR HGB CONC 32.8 g/dL (32.0-36.0); MEAN CORPUSCULAR VOLUME 90.1 fL (81.0-99.0); MONOCYTES # (AUTO) 0.8 10^3/uL (0.0-1.0); MONOCYTES % (AUTO) 6.4 %; NEUTROPHILS # (AUTO) 9.4 10^3/uL (1.5-6.6); NEUTROPHILS % (AUTO) 72.9 %; PLT - PLATELET COUNT 316 10^3/uL (130-450); RED BLOOD COUNT 3.83 10^6/uL (4.20-5.40); RED CELL DISTRIBUTION WIDTH 12.6 % (12.0-15.0); WHITE BLOOD COUNT 12.8 x10^3/uL (4.8-10.8)
[2023-02-16 15:15] LABS: PROTEIN/CREATININE RATIO,URINE 0.1 (<=0.2)
[2023-02-16 15:20] LABS: ALBUMIN 3.6 g/dL (3.2-5.5); ALBUMIN/GLOBULIN RATIO 1.2 (1.0-2.2); BILIRUBIN,TOTAL 0.3 mg/dL (0.2-1.0); CALCIUM 9.8 mg/dL (8.5-10.3); CREATININE 0.5 mg/dL (0.6-1.3); POTASSIUM 4.6 mmol/L (3.5-4.5); TOTAL PROTEIN 6.6 g/dL (6.4-8.9)
[2023-02-16 15:52] VITALS: BP 122/71
--- NOTE | 2023-02-16 16:13 | PROVIDER PROGRESS NOTE ---
- HPI Chief Complaint: Hypertension/PIH Current : Current EDU 05/20/23 Gestation 26 Weeks and 5 Days 1 Para 0 Vital Signs Temperature 98.4 F 02/16/23 14:42 Heart Rate 97 02/16/23 14:42 Respiratory Rate 17 02/16/23 14:42 Blood Pressure 128/92 H 02/16/23 14:42 O2 Saturation 97 02/16/23 14:42 Temperature 98.4 F 02/16/23 14:51 Heart Rate 97 02/16/23 14:42 Respiratory Rate 17 02/16/23 14:42 Blood Pressure 122/71 02/16/23 15:45 O2 Saturation 97 02/16/23 14:42 If not protocol: Oxygen Flow, liters/minute - Exam VSS - all BP here wnl. NAD Conjunctiva pink, pale sclera +S1, S2, CTAB, no increased work of breathing Abd soft, ND EFM: 140mod hayden + A cells no D cells, reactive [place]: acontractile Cx: def Ext: neg CCE, DTR1+ - Procedures OB Procedure Performed: NST Diagnosis/Indication for NST: Pre- Hypertension NST Procedure: NST Procedure Start Date 02/16/23 Start Time 14:37 Stop Time 15:52 Vibroacoustic Stimulation Used No Patient States Movement Yes Service Date of procedure: 02/16/23 Procedure Details: 140 mod hayden + A cells (10x 10), no D cells, reassuring @26w Findings: 140 mod hayden + A cells (10x 10), no D cells, reassuring @26w - Plan Plan: Pt presented with elevated BP at home so came in for labs & eval labs wnl BP wnl. precautions and instructions reviewed in detail.
== END 2023-02-16 16:10 | disposition home or self-care (01) ==
LOC: FBP 14:28 → WFO 14:28
PROVIDERS: ATTEND Obstetrics & Gynecology
DX: O99.281 Endocrine, nutritional and metabolic diseases complicating pregnancy, first trimester (principal); R03.0 Elevated blood-pressure reading, without diagnosis of hypertension; Z3A.26 26 weeks gestation of pregnancy
CPT/HCPCS: 36415; 80053; 82570; 84156; 85025; 99215

== ENCOUNTER 2023-02-20 10:07 | Outpatient (CLI) | payer OTHER ==
[2023-02-20 17:54] LABS: HCT - HEMATOCRIT 35.1 % (37.0-47.0); HGB - HEMOGLOBIN 11.2 g/dL (12.0-16.0); MEAN CORPUSCULAR HEMOGLOBIN 30.1 pg (27.0-31.0); MEAN CORPUSCULAR HGB CONC 31.9 g/dL (32.0-36.0); MEAN CORPUSCULAR VOLUME 94.4 fL (81.0-99.0); MEAN PLATELET VOLUME 10.4 fL (7.9-10.8); RED BLOOD COUNT 3.72 10^6/uL (4.20-5.40); RED CELL DISTRIBUTION WIDTH 13.1 % (12.0-15.0); WHITE BLOOD COUNT 12.3 x10^3/uL (4.8-10.8)
== END 2023-02-20 10:08 | disposition home or self-care (01) ==
LOC: LAB.N 10:07
PROVIDERS: ATTEND Obstetrics & Gynecology
DX: O21.0 Mild hyperemesis gravidarum (principal)
CPT/HCPCS: 36415; 82950; 85027; 86850

== ENCOUNTER 2023-03-05 22:29 | Outpatient (CLI) | payer OTHER ==
[2023-03-05 23:11] LABS: BASOPHILS # (AUTO) 0.1 10^3/uL (0.0-0.1); BASOPHILS % (AUTO) 0.4 %; EOSINOPHILS # (AUTO) 0.2 10^3/uL (0.0-0.7); EOSINOPHILS % (AUTO) 1.4 %; HCT - HEMATOCRIT 33.1 % (37.0-47.0); LYMPHOCYTES % (AUTO) 23.4 %; MEAN CORPUSCULAR HEMOGLOBIN 30.5 pg (27.0-31.0); MEAN CORPUSCULAR HGB CONC 33.2 g/dL (32.0-36.0); MEAN CORPUSCULAR VOLUME 91.7 fL (81.0-99.0); MEAN PLATELET VOLUME 9.8 fL (7.9-10.8); MONOCYTES # (AUTO) 0.7 10^3/uL (0.0-1.0); MONOCYTES % (AUTO) 5.8 %; NEUTROPHILS # (AUTO) 8.8 10^3/uL (1.5-6.6); NEUTROPHILS % (AUTO) 68.2 %; PLT - PLATELET COUNT 299 10^3/uL (130-450); RED BLOOD COUNT 3.61 10^6/uL (4.20-5.40); RED CELL DISTRIBUTION WIDTH 12.6 % (12.0-15.0); WHITE BLOOD COUNT 12.8 x10^3/uL (4.8-10.8)
[2023-03-05 23:26] LABS: CREATININE,URINE 29.1 mg/dL; PROTEIN/CREATININE RATIO,URINE 0.2 (<=0.2)
[2023-03-05 23:28] LABS: ALBUMIN 3.4 g/dL (3.2-5.5); ALBUMIN/GLOBULIN RATIO 1.2 (1.0-2.2); BILIRUBIN,TOTAL 0.3 mg/dL (0.2-1.0); CALCIUM 8.8 mg/dL (8.5-10.3); CREATININE 0.3 mg/dL (0.6-1.3); POTASSIUM 3.7 mmol/L (3.5-4.5); TOTAL PROTEIN 6.3 g/dL (6.4-8.9)
--- NOTE | 2023-03-06 00:21 | PROVIDER PROGRESS NOTE ---
- HPI Chief Complaint: Hypertension/PIH Current : Vital Signs Temperature 98.5 F 03/05/23 22:42 Heart Rate 93 03/05/23 22:42 Respiratory Rate 18 03/05/23 22:42 Blood Pressure 126/74 03/05/23 22:42 Temperature 98.5 F 03/05/23 22:42 Heart Rate 93 03/05/23 22:42 Respiratory Rate 18 03/05/23 22:42 Blood Pressure 126/74 03/05/23 22:42 O2 Saturation If not protocol: Oxygen Flow, liters/minute - Exam VSS NAD +S1, S2 CTAB, no increased work of breathing abd soft, gravid at 29w, non tender no CCE DTR 1+ - Procedures OB Procedure Performed: NST Diagnosis/Indication for NST: Gestational Hypertension NST Procedure: NST Procedure Start Time 14:37 Stop Time 15:52 Service Date of procedure: 03/05/23 Procedure Details: 120 mod hayden + A cells no Dcells, reassuring at 29w - Plan Plan: 32yo G1 at 29w here because she had elevated BP at home x3 - after waiting x15m x2 asymptomatic here no elevated bp labs done - wnl urine Pr:Cr 0.2 precautions reviewed has appt tomorrow in clinic will also bring her BP cuff tomorrow as well.
[2023-03-06 00:32] VITALS: BP 124/68
== END 2023-03-06 00:10 | disposition home or self-care (01) ==
LOC: WFO 22:29 → FBP 22:31 → WFO 03-06 00:10
PROVIDERS: ATTEND Obstetrics & Gynecology
DX: O13.3 Gestational [pregnancy-induced] hypertension without significant proteinuria, third trimester (principal); Z3A.29 29 weeks gestation of pregnancy
CPT/HCPCS: 36415; 80053; 82570; 84156; 85025; 99214; 99215

== ENCOUNTER 2023-03-27 12:38 | Outpatient (CLI) | payer OTHER ==
--- NOTE | 2023-03-27 17:12 | Ultrasound Report ---
PROCEDURE: OB Follow up INDICATIONS: HYPERTENSION OUTSIDE/PRIOR DATING DATA: Last menstrual period (LMP): 08/13/2022. LMP-based estimated date of delivery (COLEEN): 05/20/2023. First dating scan (date and location): 10/14/2022. Estimated date of delivery (COLEEN) from first dating scan: 05/18/2023. TECHNIQUE: Real-time scanning was performed of the fetus, with image documentation and biometric measurements. Endovaginal scanning: Not performed. COMPARISON: OB ultrasound dated 01/15/2023, 10/14/2022 FINDINGS: General: A single living intrauterine gestation is present. Presentation: Vertex Placenta: Placental position is posterior, without previa. Amniotic fluid index: 16.2 cm, 64.9% for gestational age. heart rate: 140 beats per minute. Maternal cervical canal: Closed Estimated gestational age from initial scan: 22 weeks, 3 days Other: Ventricular outflow tracts, chest/diaphragm, bilateral kidneys, and cord insertion have a norm al sonographic appearance. IMPRESSION: 1. Single live intrauterine gestation in vertex position. Limited anatomy has a normal sonographic ap pearance. 2. ISATU within normal limits. Reviewed by: Charleen Toledo MD on 03/27/2023 5:10 PM PST Approved by: Charleen Toledo MD on 03/27/2023 5:10 PM PST Station ID: [id number]
== END 2023-03-27 12:39 | disposition home or self-care (01) ==
LOC: DI 12:38
PROVIDERS: ATTEND Obstetrics & Gynecology
DX: O10.912 Unspecified pre-existing hypertension complicating pregnancy, second trimester (principal); Z3A.00 Weeks of gestation of pregnancy not specified

== ENCOUNTER 2023-04-03 10:34 | Outpatient (CLI) | payer OTHER ==
[2023-04-03 10:51] VITALS: BP 125/71; O2SAT 98
--- NOTE | 2023-04-03 14:25 | Ultrasound Report ---
PROCEDURE: OB Limited INDICATIONS: hypertension, check ISATU OUTSIDE/PRIOR DATING DATA: Last menstrual period (LMP): 08/13/2022. LMP-based estimated date of delivery (COLEEN): 05/20/2023. First dating scan (date and location): 10/14/2022. Estimated date of delivery (COLEEN) from first dating scan: 05/18/2023. The below data below was generated using the working COLEEN of 05/18/2023 TECHNIQUE: Real-time scanning was performed of the fetus, with image documentation. Endovaginal scanning: None COMPARISON: None. FINDINGS: A single living intrauterine gestation is present. Presentation: Cephalic Placenta: Placental position is posterior, without previa. Amniotic fluid index: 10.0 cm, low normal for gestational age. heart rate: 141 beats per minutes. Maternal cervical canal: 4.9 cm long; normal length is 2.5 cm or more. Estimated gestational age from initial scan: 32 week 4 day. IMPRESSION: Single live intrauterine consistent with 32 week 4 day gestation. ISATU 10.0 cm Reviewed by: Kailash Gutierres MD on 04/03/2023 1:24 PM [place] Approved by: Kailash Gutierres MD on 04/03/2023 1:24 PM [place] Station ID: [id number]
--- NOTE | 2023-04-06 21:05 | PROCEDURE REPORT ---
- HPI Diagnosis/Indication for NST: Gestational Hypertension Current EDU 05/20/23 Gestation 33 Weeks and 2 Days 1 Para 0 Vital Signs Temperature 98.6 F 04/03/23 10:48 Heart Rate 89 04/03/23 10:48 Respiratory Rate 17 04/03/23 10:48 Blood Pressure 125/71 04/03/23 10:48 O2 Saturation 98 04/03/23 10:48 Temperature 98.6 F 04/03/23 11:38 Heart Rate 89 04/03/23 10:48 Respiratory Rate 17 04/03/23 10:48 Blood Pressure 125/71 04/03/23 10:48 O2 Saturation 98 04/03/23 10:48 If not protocol: Oxygen Flow, liters/minute - NST Procedure NST Procedure Start Date 04/03/23 Start Time 11:10 Stop Time 11:38 Vibroacoustic Stimulation Used No Patient States Movement Yes nst reviewed in real time. normal baseline. moderate variability. + acels and no decels. - Results and Plan Findings/Impression: reactive nst Plan: care as scheduled.
== END 2023-04-03 12:06 | disposition home or self-care (01) ==
LOC: WFO 10:34 → FBP 10:37 → WFO 12:06
PROVIDERS: ATTEND Obstetrics & Gynecology
DX: O10.913 Unspecified pre-existing hypertension complicating pregnancy, third trimester (principal); Z3A.33 33 weeks gestation of pregnancy
CPT/HCPCS: 59025

== ENCOUNTER 2023-04-04 17:23 | Outpatient (CLI) | payer OTHER ==
[2023-04-04 17:47] VITALS: BP 132/77; O2SAT 97
[2023-04-04 18:32] LABS: BASOPHILS % (AUTO) 0.3 %; EOSINOPHILS # (AUTO) 0.1 10^3/uL (0.0-0.7); EOSINOPHILS % (AUTO) 1.2 %; HCT - HEMATOCRIT 32.9 % (37.0-47.0); HGB - HEMOGLOBIN 10.8 g/dL (12.0-16.0); LYMPHOCYTES # (AUTO) 2.6 10^3/uL (1.5-3.5); LYMPHOCYTES % (AUTO) 22.4 %; MEAN CORPUSCULAR HEMOGLOBIN 29.9 pg (27.0-31.0); MEAN CORPUSCULAR HGB CONC 32.8 g/dL (32.0-36.0); MEAN CORPUSCULAR VOLUME 91.1 fL (81.0-99.0); MEAN PLATELET VOLUME 10.3 fL (7.9-10.8); MONOCYTES # (AUTO) 0.7 10^3/uL (0.0-1.0); MONOCYTES % (AUTO) 5.9 %; NEUTROPHILS # (AUTO) 8.1 10^3/uL (1.5-6.6); NEUTROPHILS % (AUTO) 69.3 %; PLT - PLATELET COUNT 279 10^3/uL (130-450); RED BLOOD COUNT 3.61 10^6/uL (4.20-5.40); RED CELL DISTRIBUTION WIDTH 12.8 % (12.0-15.0); WHITE BLOOD COUNT 11.7 x10^3/uL (4.8-10.8)
[2023-04-04 18:51] LABS: ALBUMIN 3.2 g/dL (3.2-5.5); ALBUMIN/GLOBULIN RATIO 1.1 (1.0-2.2); BILIRUBIN,TOTAL 0.3 mg/dL (0.2-1.0); CALCIUM 9.4 mg/dL (8.5-10.3); CREATININE 0.5 mg/dL (0.6-1.3); POTASSIUM 3.9 mmol/L (3.5-4.5)
[2023-04-04 19:08] LABS: CREATININE,URINE 79.4 mg/dL; PROTEIN/CREATININE RATIO,URINE 0.1 (<=0.2)
--- NOTE | 2023-04-04 19:38 | PROVIDER PROGRESS NOTE ---
- HPI Chief Complaint: Other (right upper quadrant pain. Hypertension) Current : Current EDU 05/20/23 Gestation 33 Weeks and 3 Days 1 Para 0 Patient is being followed for htn. now with RUQ pain. was very uncomfortable so came in to get checked. felt better after passing some gas. baby is moving well. Ultrasound yesterday with ISATU of 10. NST reactive yesterday. Vital Signs Temperature 98.1 F 04/04/23 17:38 Heart Rate 89 04/04/23 17:38 Respiratory Rate 17 04/04/23 17:38 Blood Pressure 132/77 H 04/04/23 17:38 O2 Saturation 97 04/04/23 17:38 Temperature 98.1 F 04/04/23 17:39 Heart Rate 89 04/04/23 17:38 Respiratory Rate 17 04/04/23 17:38 Blood Pressure 132/77 H 04/04/23 17:38 O2 Saturation 97 04/04/23 17:38 If not protocol: Oxygen Flow, liters/minute - Exam comfortable on stretcher. abdomen soft. lower ribs tender. fundus not tender. - Procedures OB Procedure Performed: NST Diagnosis/Indication for NST: Gestational Hypertension NST Procedure: NST Procedure Start Date 04/04/23 Start Time 18:10 Stop Time 18:55 Vibroacoustic Stimulation Used No Patient States Movement Yes moderate variability, + acels no decels. baseline 140. Findings: reactive nst - Plan Plan: seems patient is having pain from rib stretching. reassured. NST reactive. yesterday's ISATU discussed and copy given. Reassured. Continue care as scheduled.
== END 2023-04-04 19:30 | disposition home or self-care (01) ==
LOC: WFO 17:23 → FBP 17:26 → WFO 19:30
PROVIDERS: ATTEND Obstetrics & Gynecology
DX: O99.891 Other specified diseases and conditions complicating pregnancy (principal); R10.11 Right upper quadrant pain; O13.3 Gestational [pregnancy-induced] hypertension without significant proteinuria, third trimester; Z3A.33 33 weeks gestation of pregnancy
CPT/HCPCS: 36415; 59025; 80053; 82570; 84156; 85025; 99215

== ENCOUNTER 2023-04-07 10:58 | Outpatient (CLI) | payer OTHER ==
[2023-04-07 11:17] VITALS: BP 121/70
--- NOTE | 2023-04-07 17:22 | PROCEDURE REPORT ---
- HPI Diagnosis/Indication for NST: Pre- Hypertension Current EDU 05/20/23 Gestation 33 Weeks and 6 Days 1 Para 0 Vital Signs Temperature 99.0 F 04/07/23 11:08 Heart Rate 115 H 04/07/23 11:08 Respiratory Rate 18 04/07/23 11:08 Blood Pressure 121/70 04/07/23 11:08 Temperature 99.0 F 04/07/23 11:08 Heart Rate 115 H 04/07/23 11:08 Respiratory Rate 18 04/07/23 11:08 Blood Pressure 121/70 04/07/23 11:08 O2 Saturation If not protocol: Oxygen Flow, liters/minute - NST Procedure NST Procedure Start Date 04/07/23 Start Time 11:07 Stop Time 11:51 Vibroacoustic Stimulation Used No Patient States Movement Yes - Results and Plan Plan: Patient is a 32-year-old G1, P0 at 33 weeks 6 days gestation here for NST. NST Performed 04/07/2023 NST Read 04/07/2023 FHT: 140 bpm baseline, moderate variability, accelerations present, no decelerations. Reactive NST [place]: Quiescent Diagnosis 33 weeks gestation Chronic hypertension Continue with scheduled NST.
== END 2023-04-07 11:55 | disposition home or self-care (01) ==
LOC: WFO 10:58 → FBP 11:01 → WFO 11:55
PROVIDERS: ATTEND Obstetrics & Gynecology
DX: O10.913 Unspecified pre-existing hypertension complicating pregnancy, third trimester (principal); Z3A.33 33 weeks gestation of pregnancy
CPT/HCPCS: 59025

== ENCOUNTER 2023-04-10 15:56 | Outpatient (CLI) | payer OTHER ==
--- NOTE | 2023-04-10 16:54 | PROCEDURE REPORT ---
- HPI Current EDU 05/20/23 Gestation 34 Weeks and 2 Days 1 Para 0 Vital Signs Temperature 98.2 F 04/10/23 16:00 Heart Rate 90 04/10/23 16:00 Respiratory Rate 16 04/10/23 16:00 Blood Pressure 139/83 H 04/10/23 16:00 O2 Saturation 98 04/10/23 16:00 Temperature 98.2 F 04/10/23 16:00 Heart Rate 90 04/10/23 16:00 Respiratory Rate 16 04/10/23 16:00 Blood Pressure 139/83 H 04/10/23 16:00 O2 Saturation 98 04/10/23 16:00 If not protocol: Oxygen Flow, liters/minute - NST Procedure NST Procedure Start Date 04/10/23 Start Time 16:02 Stop Time 16:25 Vibroacoustic Stimulation Used No Patient States Movement Yes - Results and Plan Plan: Patient is a 32-year-old G1, P0 at 34 weeks 2 days gestation here for NST. NST Performed 04/10/2023 NST Read 04/10/2023 FHT: 140 beats minute baseline, moderate variability, accelerations present, no decelerations. Reactive NST [place]: Quiescent Diagnosis 34 weeks gestation Chronic hypertension Continue with scheduled NST.
[2023-04-10 17:27] VITALS: BP 139/83; O2SAT 98
== END 2023-04-10 17:00 | disposition home or self-care (01) ==
LOC: WFO 15:56 → FBP 16:00 → WFO 17:00
PROVIDERS: ATTEND Obstetrics & Gynecology
DX: O10.913 Unspecified pre-existing hypertension complicating pregnancy, third trimester (principal); Z3A.34 34 weeks gestation of pregnancy
CPT/HCPCS: 59025

== ENCOUNTER 2023-04-10 15:58 | Outpatient (CLI) | payer OTHER ==
--- NOTE | 2023-04-11 15:32 | Ultrasound Report ---
PROCEDURE: OB Limited INDICATIONS: HYPERTENSION COMPLICATING OUTSIDE/PRIOR DATING DATA: Last menstrual period (LMP): 08/13/2022. LMP-based estimated date of delivery (COLEEN): 05/20/2023. First dating scan (date and location): 10/14/2022. Estimated date of delivery (COLEEN) from first dating scan: 05/18/2023. The below data below was generated using the ultrasound COLEEN of 05/18/2023 TECHNIQUE: Real-time scanning was performed of the fetus, with image documentation. COMPARISON: OB ultrasound 04/03/2023 FINDINGS: A single living intrauterine gestation is present. Presentation: Vertex Placenta: Placental position is posterior, without previa. Amniotic fluid index: 17.5 cm, within normal limits for gestational age. Largest pocket 5.6 cm. heart rate: 169 beats per minutes. Maternal cervical canal: Not assessed. Estimated gestational age from initial scan: 34 weeks 1 day. IMPRESSION: Single live intrauterine with gestational age of 34 weeks 4 days. ISATU measures 17.5 cm. Reviewed by: Ethel Ortiz MD on 04/11/2023 3:31 PM PST Approved by: Ethel Ortiz MD on 04/11/2023 3:31 PM PST Station ID: [id number]
== END 2023-04-10 15:59 | disposition home or self-care (01) ==
LOC: DI 15:58
PROVIDERS: ATTEND Obstetrics & Gynecology
DX: O10.913 Unspecified pre-existing hypertension complicating pregnancy, third trimester (principal); Z3A.34 34 weeks gestation of pregnancy

== ENCOUNTER 2023-04-15 13:51 | Outpatient (CLI) | payer OTHER ==
[2023-04-15 15:34] VITALS: BP 120/73
--- NOTE | 2023-04-15 17:02 | PROCEDURE REPORT ---
- HPI Current EDU 05/20/23 Gestation 35 Weeks and 0 Days 1 Para 0 Vital Signs Temperature 98.4 F 04/15/23 14:23 Heart Rate 88 04/15/23 14:23 Respiratory Rate 16 04/15/23 14:23 Blood Pressure 143/73 H 04/15/23 14:23 Temperature 98.4 F 04/15/23 14:23 Heart Rate 88 04/15/23 14:23 Respiratory Rate 16 04/15/23 14:23 Blood Pressure 120/73 04/15/23 15:21 O2 Saturation If not protocol: Oxygen Flow, liters/minute - NST Procedure NST Procedure Start Date 04/15/23 Start Time 14:18 Stop Time 14:58 Vibroacoustic Stimulation Used No Patient States Movement Yes - Results and Plan Findings/Impression: Patient is a 32-year-old G1, P0 at 35 weeks 0 days gestation here for NST. NST Performed 04/15/2023 NST Read 04/15/2023 FHT: 135 bpm baseline, moderate variability, accelerations present, no decelerations. Reactive NST [place]: Quiescent Diagnosis 35 weeks gestation Chronic hypertension Continue with scheduled NST.
== END 2023-04-15 15:00 | disposition home or self-care (01) ==
LOC: WFO 13:51 → FBP 14:14 → WFO 15:00
PROVIDERS: ATTEND Obstetrics & Gynecology
DX: O10.913 Unspecified pre-existing hypertension complicating pregnancy, third trimester (principal); Z3A.35 35 weeks gestation of pregnancy
CPT/HCPCS: 59025

== ENCOUNTER 2023-04-15 13:51 | Outpatient (CLI) | payer OTHER ==
--- NOTE | 2023-04-15 17:43 | Ultrasound Report ---
PROCEDURE: OB Limited INDICATIONS: HYPERTENSION COMPLICATING OUTSIDE/PRIOR DATING DATA: Last menstrual period (LMP): 08/13/2022. LMP-based estimated date of delivery (COLEEN): 05/20/2023. First dating scan (date and location): 10/14/2022. Estimated date of delivery (COLEEN) from first dating scan: 05/17/2024. The below data below was generated using the ultrasound COLEEN of 05/17/2024 TECHNIQUE: Real-time scanning was performed of the fetus, with image documentation. COMPARISON: OB ultrasound 04/10/2023 FINDINGS: A single living intrauterine gestation is present. Presentation: Vertex Placenta: Placental position is posterior, without previa. Amniotic fluid index: 16.8 cm, within normal limits for gestational age. Largest pocket measures 5.1 cm. heart rate: 166 beats per minutes. Maternal cervical canal: 4.8 cm long; normal length is 2.5 cm or more. Estimated gestational age from initial scan: 35 weeks 2 days. IMPRESSION: Single live intrauterine with gestational age of 35 weeks 2 days. ISATU measures 16.8 cm. Reviewed by: Ethel Ortiz MD on 04/15/2023 5:42 PM PST Approved by: Ethel Ortiz MD on 04/15/2023 5:42 PM PST Station ID: [id number]
== END 2023-04-15 13:52 | disposition home or self-care (01) ==
LOC: DI 13:51
PROVIDERS: ATTEND Obstetrics & Gynecology
DX: O10.913 Unspecified pre-existing hypertension complicating pregnancy, third trimester (principal); Z3A.35 35 weeks gestation of pregnancy

== ENCOUNTER 2023-04-18 14:29 | Outpatient (CLI) | payer OTHER ==
--- NOTE | 2023-04-18 16:48 | PROCEDURE REPORT ---
- HPI Diagnosis/Indication for NST: Pre- Hypertension Vital Signs Temperature 98.4 F 04/18/23 14:47 Heart Rate 90 04/18/23 14:47 Respiratory Rate 18 04/18/23 14:47 Blood Pressure 143/82 H 04/18/23 14:47 Temperature 98.4 F 04/18/23 14:47 Heart Rate 90 04/18/23 14:47 Respiratory Rate 18 04/18/23 14:47 Blood Pressure 143/82 H 04/18/23 14:47 O2 Saturation If not protocol: Oxygen Flow, liters/minute - NST Procedure NST Procedure Start Time 14:18 Stop Time 14:58 - Results and Plan Plan: Patient is a 32-year-old G1, P0 at 35 weeks gestation here for NST. NST Performed 04/18/2023 NST Read 04/18/2023 FHT: 145 bpm baseline, moderate variability, accelerations present, no decelerations. Reactive NST [place]: Irregular Diagnosis 35 weeks gestation Chronic hypertension Continue with scheduled OB care
[2023-04-18 16:59] VITALS: BP 144/73
== END 2023-04-18 15:30 | disposition home or self-care (01) ==
LOC: WFO 14:29 → FBP 14:41 → WFO 15:30
PROVIDERS: ATTEND Obstetrics & Gynecology
DX: O10.913 Unspecified pre-existing hypertension complicating pregnancy, third trimester (principal); Z3A.35 35 weeks gestation of pregnancy
CPT/HCPCS: 59025

== ENCOUNTER 2023-04-23 12:21 | Outpatient (CLI) | payer OTHER ==
--- NOTE | 2023-04-23 18:13 | Ultrasound Report ---
PROCEDURE: OB Follow up INDICATIONS: HYPERTENSION OUTSIDE/PRIOR DATING DATA: Last menstrual period (LMP): 08/13/2022. LMP-based estimated date of delivery (COLEEN): 05/19/2024. First dating scan (date and location): 10/14/2022. Estimated date of delivery (COLEEN) from first dating scan: 05/17/2024. The below data below was generated using the working COLEEN of 05/17/2024 TECHNIQUE: Ultrasound of the gravid uterus was performed and recorded. COMPARISON: None. FINDINGS: General: A single live intrauterine gestation is present. Presentation: Vertex Placenta: Placental position is posterior and without previa. Amniotic fluid index: 13.6 cm, within normal limits for gestational age. heart rate: 148 beats per minute. Maternal cervical canal: 5.9 cm long; normal length is 2.5 cm or more. biometrics: Biparietal diameter: 9.2 cm, 32 week 2 day, 81 percentile Head circumference: 32.8 cm, 37 week 2 day, 42 percentile Abdominal circumference: 35.4 cm, 39 week 2 day, 99 percentile Femur length: 7.1 cm, 36 week 3 day, 47 percentile Estimated gestational age by working dates: 36 week 3 day Composite gestational age by current ultrasound: 37 week 4 day Estimated weight and percentile: 3420 g, 92% Measurement variability in biometric dating: +/- 10 days from 12-20 weeks gestation, +/- 2 weeks from 20-30 weeks gestation, +/- 3 weeks at 30 weeks gestation or more. Other: Not applicable. IMPRESSION: Single live intrauterine consistent with 37 week 4 day gestation by current ultrasound Reviewed by: Kailash Gutierres MD on 04/23/2023 5:12 PM [place] Approved by: Kailash Gutierres MD on 04/23/2023 5:12 PM [place] Station ID: [id number]
== END 2023-04-23 12:22 | disposition home or self-care (01) ==
LOC: DI 12:21
PROVIDERS: ATTEND Obstetrics & Gynecology
DX: O10.913 Unspecified pre-existing hypertension complicating pregnancy, third trimester (principal); Z3A.37 37 weeks gestation of pregnancy

== ENCOUNTER 2023-04-24 13:54 | Outpatient (CLI) | payer OTHER ==
[2023-04-24 14:37] VITALS: BP 120/72
--- NOTE | 2023-04-24 14:40 | PROCEDURE REPORT ---
- HPI Vital Signs Temperature 98.6 F 04/24/23 14:30 Heart Rate 87 04/24/23 14:30 Respiratory Rate 17 04/24/23 14:30 Blood Pressure 120/72 04/24/23 14:30 Temperature 98.6 F 04/24/23 14:30 Heart Rate 87 04/24/23 14:30 Respiratory Rate 17 04/24/23 14:30 Blood Pressure 120/72 04/24/23 14:30 O2 Saturation If not protocol: Oxygen Flow, liters/minute - NST Procedure NST Procedure Start Time 11:10 Stop Time 11:59 - Results and Plan Plan: Patient is a 32-year-old G1, P0 at 36 weeks 2 days gestation here for NST. NST Performed 04/24/2023 NST Read 04/24/2023 FHT: 145 bpm baseline, moderate variability, accelerations present, no decelerations. Reactive NST [place]: Quiescent Diagnosis 36 weeks gestation Chronic hypertension Continue with scheduled OB care
== END 2023-04-24 14:45 | disposition home or self-care (01) ==
LOC: WFO 13:54 → FBP 13:55 → WFO 14:45
PROVIDERS: ATTEND Obstetrics & Gynecology
DX: O10.913 Unspecified pre-existing hypertension complicating pregnancy, third trimester (principal); Z3A.36 36 weeks gestation of pregnancy
CPT/HCPCS: 59025

== ENCOUNTER 2023-04-28 11:03 | Outpatient (CLI) | payer OTHER ==
[2023-04-28 12:20] LABS: BASOPHILS % (AUTO) 0.2 %; EOSINOPHILS # (AUTO) 0.1 10^3/uL (0.0-0.7); EOSINOPHILS % (AUTO) 1.1 %; HGB - HEMOGLOBIN 11.3 g/dL (12.0-16.0); MEAN CORPUSCULAR HEMOGLOBIN 30.1 pg (27.0-31.0); MEAN CORPUSCULAR HGB CONC 33.2 g/dL (32.0-36.0); MEAN CORPUSCULAR VOLUME 90.7 fL (81.0-99.0); MEAN PLATELET VOLUME 10.6 fL (7.9-10.8); MONOCYTES # (AUTO) 0.6 10^3/uL (0.0-1.0); MONOCYTES % (AUTO) 5.8 %; NEUTROPHILS # (AUTO) 7.3 10^3/uL (1.5-6.6); NEUTROPHILS % (AUTO) 72.2 %; PLT - PLATELET COUNT 246 10^3/uL (130-450); RED BLOOD COUNT 3.75 10^6/uL (4.20-5.40); RED CELL DISTRIBUTION WIDTH 12.9 % (12.0-15.0); WHITE BLOOD COUNT 10.2 x10^3/uL (4.8-10.8)
[2023-04-28 12:29] VITALS: BP 138/81
[2023-04-28 12:47] LABS: ALBUMIN 3.2 g/dL (3.2-5.5); BILIRUBIN,TOTAL 0.3 mg/dL (0.2-1.0); CALCIUM 9.5 mg/dL (8.5-10.3); CREATININE 0.5 mg/dL (0.6-1.3); TOTAL PROTEIN 6.3 g/dL (6.4-8.9)
[2023-04-28 12:59] LABS: CREATININE,URINE 167.7 mg/dL; PROTEIN/CREATININE RATIO,URINE 0.1 (<=0.2)
--- NOTE | 2023-05-02 17:56 | PROCEDURE REPORT ---
- HPI Diagnosis/Indication for NST: Gestational Hypertension Current EDU 05/20/23 Gestation 36 Weeks and 6 Days 1 Para 0 Vital Signs Temperature 98.7 F 04/28/23 11:15 Heart Rate 115 H 04/28/23 11:15 Respiratory Rate 18 04/28/23 11:15 Blood Pressure 141/87 H 04/28/23 11:15 Temperature 98.5 F 04/28/23 12:19 Heart Rate 94 04/28/23 12:19 Respiratory Rate 17 04/28/23 12:19 Blood Pressure 138/81 H 04/28/23 12:19 O2 Saturation If not protocol: Oxygen Flow, liters/minute - NST Procedure NST Procedure Start Date 04/28/23 Start Time 11:12 Stop Time 12:11 Vibroacoustic Stimulation Used No Patient States Movement Yes NST reivewed. normal baseline. moderate variability. + acels. no decels. assessment: reactive NST Plan: care as scheduled.
== END 2023-04-28 12:25 | disposition home or self-care (01) ==
LOC: WFO 11:03 → FBP 11:06 → WFO 12:25
PROVIDERS: ATTEND Obstetrics & Gynecology
DX: O10.913 Unspecified pre-existing hypertension complicating pregnancy, third trimester (principal); Z3A.36 36 weeks gestation of pregnancy
CPT/HCPCS: 36415; 59025; 80053; 82570; 84156; 85025

== ENCOUNTER 2023-04-29 23:33 | Outpatient (CLI) | payer OTHER ==
--- NOTE | 2023-04-30 00:08 | PROVIDER PROGRESS NOTE ---
- HPI Chief Complaint: Hypertension/PIH Current : lots of pressure and elevated bps at home. came in for eval. no headache. no n/v today. did yesterday but that is usual. more swelling today. baby moving well. Vital Signs Temperature 99.9 F 04/29/23 23:52 Heart Rate 95 04/29/23 23:52 Respiratory Rate 20 04/29/23 23:52 Blood Pressure 149/84 H 04/29/23 23:52 O2 Saturation 97 04/29/23 23:52 Temperature 99.9 F 04/29/23 23:52 Heart Rate 95 04/29/23 23:52 Respiratory Rate 20 04/29/23 23:52 Blood Pressure 149/84 H 04/29/23 23:52 O2 Saturation 97 04/29/23 23:52 If not protocol: Oxygen Flow, liters/minute FINDINGS: General: A single live intrauterine gestation is present. Presentation: Vertex Placenta: Placental position is posterior and without previa. Amniotic fluid index: 13.6 cm, within normal limits for gestational age. heart rate: 148 beats per minute. Maternal cervical canal: 5.9 cm long; normal length is 2.5 cm or more. biometrics: Biparietal diameter: 9.2 cm, 32 week 2 day, 81 percentile Head circumference: 32.8 cm, 37 week 2 day, 42 percentile Abdominal circumference: 35.4 cm, 39 week 2 day, 99 percentile Femur length: 7.1 cm, 36 week 3 day, 47 percentile Estimated gestational age by working dates: 36 week 3 day Composite gestational age by current ultrasound: 37 week 4 day Estimated weight and percentile: 3420 g, 92% Measurement variability in bionnetric dating: +/- 10 days from 12-20 weeks gestation, +/- 2 weeks from 20-30 weeks gestation, +1- 3 weeks at 30 weeks gestation or more. Other: Not applicable. IMPRESSION: Single live intrauterine consistent with 37 week 4 day gestation by current ultrasound 04/23/2023 Allergies Reviewed: Done No Known Allergies Medications: Meds Reviewed: Done famotidine 20 mg tablet (famotidine) prn heartburn iron 325 mg (65 mg iron) tablet (ferrous sulfate) once a day Colace 100 mg capsule (docusate sodium) Take 1 capsule by mouth twice a day as needed for constipation * Electric Breast Pump Use 1 device as directed as directed USE TO EXPRESS MILK ACCORDING TO BABY'S NEEDS Z39.1 COLEEN 05/20/2023 scopolamine base 1 mg over 3 days patch 3 day (scopolamine base) * magnesium tablet Reglan 5 mg tablet (metoclopramide hcl) Take 1 tablet by mouth three times a day as needed * Unisom * B6 Valtrex 500 mg tablet (valacyclovir) 1 tablet by mouth twice a day * aspirin 81 81mg tablet 1 tablet by mouth once a day ondansetron HCl 4 mg tablet (ondansetron hcl) 1 tablet by mouth six times a day as needed * vitamin Prozac 40 mg capsule (fluoxetine) Problems: Pelvic floor instability (ICD-618.89) (JQM99-E93.89) Rubella non-immune determined by serology (PGB37-A63.8) Hyperemesis gravidarum antepartum (ICD-643.93) (IKO10-F76.0) Unspecified pre-existing hypertension complicating , second trimester (ICD-642.03) (BUE88-L83.912) Anxiety depression (ICD-300.4) (UOP46-U72.8) Herpesviral vulvovaginitis (UHD65-R22.04) Supervision of other high risk , third trimester (ICD-V23.89) (ICD10- O09.893) Past Medical History: Depression/anxiety seizures as teen, 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 no diagnosis ever made after extensive work up. genital herpes. takes valtrex daily hypertension - never needed medication. better when she left the [employer]. Risk Factors-CCC: Questionnaire Would you like to become in the next year? Yes Vital Signs: Patient Profile: 32 Years Old Female Height: 69 inches Weight: 253 pounds BMI: 37.50 BP sittin / 70 Cuff size: large Vitals Entered By: Krystal NEVAREZ (April 18, 2023 1:50 PM) Meds Reviewed: Done Allergies Reviewed: Done No known allergies: T Flowsheet View for Follow-up Visit Estimated weeks of gestation: 35 3/7 Weight: 253 Blood pressure: 134 / 70 Fundal height: 35 FHR: 135 Vaginal bleeding: no Vaginal discharge: no activity: yes Labor symptoms: no Taking vits? Y Smoking: n/a Next visit: 1 wk Comment: Doing well today. Referred to pelvic or physical therapy for after treatment. Going over NSTs today. So far no abnormalities. Blood pressure remains in good control. Not on medications. Can likely go at least to due date, but can revisit as we get closer. Discussed medications/vaccines and patient agrees with HepB, vitamin K, and erythromycin - JAW LMP: 08/13/22 COLEEN by LMP: 05/20/23 US: 10/15/2022 9+1 Final COLEEN: 05/18/2023 32yo G1 @ 11&2 1. HSV - genital -Valacyclovir 500mg BID for supression at 34 weeks. 2. N/V improving (&), now is her "new baseline" & 3. depression, anxiety - fluoxetine 40mg QD [ ] establishing mental health care - discussed Jenna. 4. history of HTN - never needed meds, resolved with lifestyle changes (leaving the [employer]) - BP at home - aware of precautions -on ASA - was taking PRN, now daily -EFW next week, 04/22 -NSTs/ISATU ongoing -At this point, likely no need for induction prior to due date as she has never been started on meds and BP is normal. Can discuss as proceeds. 5. Seizures as an early teen, unknown etiology, she had few - from [age]yo - both grandmal & absence, sometimes when she was stressed / in pain, othertimes when she was doing nothing. - had a lot of exams, found nothing. She lived in [place] at the time. - no dx of epilepsy - not on extra folic acid. 6. pap post . 7. RNI 8. Anemia of : Continue iron supplementation. Third trimester H/H: 10.8/32.9% Problems: BMI>30 Pre- Weight:255.6 BMI: 37.88 Blood type: A+ Antibody: neg CBC: PLT-300 HCT-37.4 HGB-12.5 RUB: EQUIVOCAL VZV: imm HBsAg: neg HepC: neg RPR/AB-EIA: non-reactive HIV: negative PAP: GC/CT: collected 10/31- Negative HSV: both her and partner Genetic testing: [ ] ordered Oct - still not done (&) Covid: vaccinated Flu: given 10/31 FAS: Placenta: Posterior, 3VC ISATU: 11.3 EFW: 396g 90%tile 50gm OGCT: 100 TDAP: given 03/20 Breast Pump: 3rd trimester 10.8/32.9%/279 GBS: Delivery plan: working on plan. Accepts meds. Wants to take placenta home. Contraception: had wanted 6 kids, didn't realize is such a doosey. orthotricyclin lo Gender ID Choose not to disclose P: 0 A: 0 LMP: 08/13/2022 EDC: 05/20/2023 Height: 69 (04/03/2023 9:54:00 AM) Weight: 253 Weight (pre-): 255.6 (10/03/2022 9:40:53 AM) Gonnorhea: negative (10/31/2022 8:14:18 AM) Chlamydia: NEGATIVE (10/31/2022 3:06:00 PM) Blood Type: A+ (11/27/2022 8:08:31 AM) Last Antibody Screen: NEGATIVE (02/20/2023 11:14:00 AM) Is pt sexually active? yes Gonnorrhea: negative (10/31/2022 8:14:18 AM) Chlamydia: NEGATIVE (10/31/2022 3:06:00 PM) HIV: negative (11/27/2022 8:13:46 AM) RPR: Non Reactive (11/27/2022 11:53:00 AM) - Procedures NST Procedure: NST Procedure Start Time 11:12 Stop Time 12:11 Findings: cervix closed and high - Plan Plan: will check labs. maybe admit for obs.
[2023-04-30 00:09] VITALS: O2SAT 97
[2023-04-30 00:36] LABS: BASOPHILS % (AUTO) 0.3 %; EOSINOPHILS # (AUTO) 0.1 10^3/uL (0.0-0.7); EOSINOPHILS % (AUTO) 1.1 %; HCT - HEMATOCRIT 33.6 % (37.0-47.0); HGB - HEMOGLOBIN 10.9 g/dL (12.0-16.0); LYMPHOCYTES # (AUTO) 2.9 10^3/uL (1.5-3.5); MEAN CORPUSCULAR HEMOGLOBIN 29.7 pg (27.0-31.0); MEAN CORPUSCULAR HGB CONC 32.4 g/dL (32.0-36.0); MEAN CORPUSCULAR VOLUME 91.6 fL (81.0-99.0); MEAN PLATELET VOLUME 10.8 fL (7.9-10.8); MONOCYTES # (AUTO) 0.7 10^3/uL (0.0-1.0); NEUTROPHILS # (AUTO) 8.2 10^3/uL (1.5-6.6); PLT - PLATELET COUNT 255 10^3/uL (130-450); RED BLOOD COUNT 3.67 10^6/uL (4.20-5.40); WHITE BLOOD COUNT 12.1 x10^3/uL (4.8-10.8)
[2023-04-30 00:38] LABS: CREATININE,URINE 64.1 mg/dL; PROTEIN/CREATININE RATIO,URINE 0.1 (<=0.2)
[2023-04-30 00:55] LABS: ALBUMIN 3.2 g/dL (3.2-5.5); ALBUMIN/GLOBULIN RATIO 1.2 (1.0-2.2); BILIRUBIN,TOTAL 0.2 mg/dL (0.2-1.0); CALCIUM 9.2 mg/dL (8.5-10.3); CREATININE 0.5 mg/dL (0.6-1.3); POTASSIUM 3.3 mmol/L (3.5-4.5); TOTAL PROTEIN 5.9 g/dL (6.4-8.9); URIC ACID 3.9 mg/dL (2.3-6.6)
[2023-04-30 01:03] VITALS: BP 129/76
[2023-04-30 12:39] LABS: ESTIMATED AVERAGE GLUCOSE 97 mg/dL (70-100)
== END 2023-04-30 01:05 | disposition home or self-care (01) ==
LOC: WFO 23:33 → FBP 23:39 → WFO 04-30 01:05
PROVIDERS: ATTEND Obstetrics & Gynecology
DX: O16.3 Unspecified maternal hypertension, third trimester (principal); O98.32 Other infections with a predominantly sexual mode of transmission complicating childbirth; A60.09 Herpesviral infection of other urogenital tract; Z3A.37 37 weeks gestation of pregnancy; O99.343 Other mental disorders complicating pregnancy, third trimester; F32.A Depression, unspecified; F41.9 Anxiety disorder, unspecified; O99.891 Other specified diseases and conditions complicating pregnancy; R11.2 Nausea with vomiting, unspecified; O99.013 Anemia complicating pregnancy, third trimester
CPT/HCPCS: 36415; 80053; 82570; 83036; 84156; 84550; 85025; 99215

== ENCOUNTER 2023-04-30 12:57 | Outpatient (CLI) | payer OTHER ==
--- NOTE | 2023-05-02 17:51 | PROCEDURE REPORT ---
- HPI Diagnosis/Indication for NST: Gestational Hypertension Current EDU 05/20/23 Gestation 37 Weeks and 1 Days 1 Para 0 Vital Signs Temperature 98.6 F 04/30/23 13:20 Temperature 98.6 F 04/30/23 13:55 Heart Rate Respiratory Rate Blood Pressure O2 Saturation If not protocol: Oxygen Flow, liters/minute - NST Procedure NST Procedure Start Date 04/30/23 Start Time 13:12 Stop Time 13:53 Vibroacoustic Stimulation Used No Patient States Movement Yes NST reivewed. normal baseline. moderate variability. + acels. no decels. assessment: reactive NST Plan: care as scheduled.
== END 2023-04-30 13:56 | disposition home or self-care (01) ==
LOC: WFO 12:57 → FBP 13:00 → WFO 13:56
PROVIDERS: ATTEND Obstetrics & Gynecology
DX: O16.3 Unspecified maternal hypertension, third trimester (principal); O98.32 Other infections with a predominantly sexual mode of transmission complicating childbirth; A60.09 Herpesviral infection of other urogenital tract; O99.343 Other mental disorders complicating pregnancy, third trimester; F32.A Depression, unspecified; F41.9 Anxiety disorder, unspecified; O99.891 Other specified diseases and conditions complicating pregnancy; R11.2 Nausea with vomiting, unspecified; O99.013 Anemia complicating pregnancy, third trimester; Z3A.37 37 weeks gestation of pregnancy
CPT/HCPCS: 36415; 59025; 80053; 82570; 83036; 84156; 84550; 85025; 99215

== ENCOUNTER 2023-05-01 10:41 | Inpatient (IN) | payer OTHER ==
[2023-05-01] MEDS ORDERED: hydrALAZINE INJ 20 MG/ML VIAL IVP PRN ×2 (11:18)
[2023-05-01] MEDS ORDERED: SODIUM CHLORIDE FLUSH 0.9% 10 ML SYRINGE IVP PRN (11:18)
[2023-05-01] MEDS ORDERED: miSOPROStoL 200 MCG TABLET BC PRN (11:18)
[2023-05-01] MEDS ORDERED: OXYTOCIN 10 UNIT/ML VIAL IM PRN (11:18)
[2023-05-01] MEDS ORDERED: CALCIUM CARBONATE CHEW 500 MG TABLET PO PRN (11:18)
[2023-05-01] MEDS ORDERED: TRANEXAMIC ACID IN NACL 1,000 MG/100 ML BAG IV PRN (11:18)
[2023-05-01] MEDS ORDERED: METHYLERGONOVINE 0.2 MG/ML VIAL IM PRN (11:18)
[2023-05-01] MEDS ORDERED: fentaNYL 100 MCG/2 ML VIAL IVP PRN (11:18)
[2023-05-01] MEDS ORDERED: TERBUTALINE 1 MG/ML VIAL SUBQ PRN (11:18)
[2023-05-01] MEDS ORDERED: LABETALOL 20 MG/4 ML SYRINGE IVP PRN ×3 (11:18)
[2023-05-01] MEDS ORDERED: ACETAMINOPHEN 500 MG TABLET PO PRN ×2 (11:18)
[2023-05-01] MEDS ORDERED: diphenhydrAMINE INJ 50 MG/ML VIAL IVP PRN (11:18)
[2023-05-01] MEDS ORDERED: miSOPROStoL 200 MCG TABLET PR PRN (11:18)
[2023-05-01] MEDS ORDERED: CARBOPROST TROMETHAMINE 250 MCG/ML VIAL IM PRN (11:18)
[2023-05-01] MEDS ORDERED: NIFEdipine 10 MG CAPSULE PO PRN (11:18)
[2023-05-01 12:30] LABS: BASOPHILS % (AUTO) 0.2 %; EOSINOPHILS # (AUTO) 0.1 10^3/uL (0.0-0.7); EOSINOPHILS % (AUTO) 0.6 %; HCT - HEMATOCRIT 34.5 % (37.0-47.0); HGB - HEMOGLOBIN 11.5 g/dL (12.0-16.0); LYMPHOCYTES # (AUTO) 2.4 10^3/uL (1.5-3.5); LYMPHOCYTES % (AUTO) 19.5 %; MEAN CORPUSCULAR HEMOGLOBIN 30.2 pg (27.0-31.0); MEAN CORPUSCULAR HGB CONC 33.3 g/dL (32.0-36.0); MEAN CORPUSCULAR VOLUME 90.6 fL (81.0-99.0); MONOCYTES # (AUTO) 0.7 10^3/uL (0.0-1.0); MONOCYTES % (AUTO) 5.6 %; NEUTROPHILS % (AUTO) 73.4 %; PLT - PLATELET COUNT 262 10^3/uL (130-450); RED BLOOD COUNT 3.81 10^6/uL (4.20-5.40); WHITE BLOOD COUNT 12.3 x10^3/uL (4.8-10.8)
[2023-05-01] MEDS: SODIUM CHLORIDE FLUSH 0.9% 10 ML SYRINGE IVP SCH (12:30)
[2023-05-01] MEDS: FLUoxetine 10 MG CAPSULE PO SCH (12:30)
[2023-05-01] MEDS: miSOPROStoL 100 MCG TABLET VG SCH (12:55)
[2023-05-01 13:05] LABS: CREATININE,URINE 168.5 mg/dL; PROTEIN/CREATININE RATIO,URINE 0.1 (<=0.2)
[2023-05-01 13:09] LABS: ALBUMIN 3.3 g/dL (3.2-5.5); ALBUMIN/GLOBULIN RATIO 1.1 (1.0-2.2); BILIRUBIN,TOTAL 0.3 mg/dL (0.2-1.0); CALCIUM 9.5 mg/dL (8.5-10.3); CREATININE 0.5 mg/dL (0.6-1.3); POTASSIUM 3.8 mmol/L (3.5-4.5); TOTAL PROTEIN 6.3 g/dL (6.4-8.9)
--- NOTE | 2023-05-01 13:48 | PHARMACY PROGRESS NOTE ---
- Best Possible Medication History Admit Date and Time: 05/01/23 1118 Processed by: Nursing Medications reviewed in ED?: No Medication History completed: Yes Patient Interview: Completed Secondary Source(s): Insurance records As the person ultimately responsible for medication therapy, providers are able to order a medication from an existing home medication list in [facility] via the "Reconcile Routine" prior to Confirmation of that medication by administrative support clerk. Such practice is discouraged except when the physician, in their clinical judgment, deems that a medical need exists for a medication without regard to previous use.
--- NOTE | 2023-05-01 20:59 | HISTORY & PHYSICAL EXAMINATION ---
History and Physical - History and Physical HPI: Patient presents today for her f/u at 37+2 ........................ ...........................................Sandhya Graham REFLOW OPERATOR May 01, 2023 9:57 AM. really miserable. vomiting in bathroom before her visit. here today with her . c/o more swelling. bps at home 150s. OB Follow up ultrasound INDICATIONS: HYPERTENSION OUTSIDE/PRIOR DATING DATA: Last menstrual period (LMP): 08/13/2022. LMP-based estimated date of delivery (COLEEN): 05/19/2024. First dating scan (date and location): 10/14/2022. Estimated date of delivery (COLEEN) from first dating scan: 05/17/2024. The below data below was generated using the working COLEEN of 05/17/2024 FINDINGS: General: A single live intrauterine gestation is present. Presentation: Vertex Placenta: Placental position is posterior and without previa. Amniotic fluid index: 13.6 cm, within normal limits for gestational age. heart rate: 148 beats per minute. Maternal cervical canal: 5.9 cm long; normal length is 2.5 cm or more. biometrics: Biparietal diameter: 9.2 cm, 32 week 2 day, 81 percentile Head circumference: 32.8 cm, 37 week 2 day, 42 percentile Abdominal circumference: 35.4 cm, 39 week 2 day, 99 percentile Femur length: 7.1 cm, 36 week 3 day, 47 percentile Estimated gestational age by working dates: 36 week 3 day Composite gestational age by current ultrasound: 37 week 4 day Estimated weight and percentile: 3420 g, 92% Measurement variability in bionnetric dating: +/- 10 days from 12-20 weeks gestation, +/- 2 weeks from 20-30 weeks gestation, +1- 3 weeks at 30 weeks gestation or more. Other: Not applicable. IMPRESSION: Single live intrauterine consistent with 37 week 4 day gestation by current ultrasound 04/23/2023 Allergies: Allergies Reviewed: Done No Known Allergies Medications: Meds Reviewed: Done famotidine 20 mg tablet (famotidine) prn heartburn iron 325 mg (65 mg iron) tablet (ferrous sulfate) once a day Colace 100 mg capsule (docusate sodium) Take 1 capsule by mouth twice a day as needed for constipation * Electric Breast Pump Use 1 device as directed as directed USE TO EXPRESS MILK ACCORDING TO BABY'S NEEDS Z39.1 COLEEN 05/20/2023 scopolamine base 1 mg over 3 days patch 3 day (scopolamine base) * magnesium tablet Reglan 5 mg tablet (metoclopramide hcl) Take 1 tablet by mouth three times a day as needed * Unisom * B6 Valtrex 500 mg tablet (valacyclovir) 1 tablet by mouth twice a day * aspirin 81 81mg tablet 1 tablet by mouth once a day ondansetron HCl 4 mg tablet (ondansetron hcl) 1 tablet by mouth six times a day as needed * vitamin Prozac 40 mg capsule (fluoxetine) Problems: screening for streptococcus B (ICD-V28.6) (OUM43-C01.85) Pelvic floor instability (ICD-618.89) (DWV96-H67.89) Rubella non-immune determined by serology (DMS85-N73.8) Hyperemesis gravidarum antepartum (ICD-643.93) (VHI14-N36.0) Unspecified pre-existing hypertension complicating , second trimester (ICD-642.03) (BCU87-B47.912) Anxiety depression (ICD-300.4) (NJP48-L01.8) Herpesviral vulvovaginitis (HSP32-N99.04) Supervision of other high risk , third trimester (ICD-V23.89) (ICD10- O09.893) Past Medical History: Depression/anxiety seizures as teen, 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 no diagnosis ever made after extensive work up. genital herpes. takes valtrex daily hypertension - never needed medication. better when she left the [email or web address]. Vital Signs: Patient Profile: 32 Years Old Female Height: 69 inches Weight: 257.6 pounds BMI: 38.18 BP sittin / 86 Vitals Entered By: Sandhya Graham LPN (May 01, 2023 10:09 AM) Meds Reviewed: Done Allergies Reviewed: Done No known allergies: T Flowsheet View for Follow-up Visit Estimated weeks of gestation: 37 04/02 Weight: 257.6 Blood pressure: 148 / 86 Headache: No Nausea/vomiting: freq Edema: 1+LE FHR: RNST Vaginal bleeding: no Vaginal discharge: no activity: yes Labor symptoms: some contractions position: vertex Cx Dilation: 0 Cx Effacement: 60% Cx Station: -3 Taking vits? Y Smoking: n/a Comment: miserable. ready to be done. LMP: 08/13/22 COLEEN by LMP: 05/20/23 US: 10/15/2022 9+1 Final COLEEN: 05/18/2023 32yo G1 @ 11&2 1. HSV - genital -Valacyclovir 500mg BID for supression at 34 weeks. 2. N/V improving (19&2), now is her "new baseline" 26&3 3. depression, anxiety - fluoxetine 40mg QD [ ] establishing mental health care - discussed Jenna. 4. history of HTN - never needed meds, resolved with lifestyle changes (leaving the [employer]) - BP at home - aware of precautions -on ASA -EFW 04/23- 3420g 92%ile -NSTs/ISATU ongoing -At this point, likely no need for induction prior to due date as she has never been started on meds and BP is normal. Can discuss as proceeds. 5. Seizures as an early teen, unknown etiology, she had few - from [age]yo - both grandmal & absence, sometimes when she was stressed / in pain, othertimes when she was doing nothing. - had a lot of exams, found nothing. She lived in [place] at the time. - no dx of epilepsy - not on extra folic acid 6. RNI 7 Anemia of : iron supp. Third trimester H/H: 10.8/32.9% 03/06- 10.9/33.6 plt 255 Problems: BMI>30 Pre- Weight:255.6 BMI: 37.88 Blood type: A+ Antibody: neg CBC: PLT-300 HCT-37.4 HGB-12.5 RUB: EQUIVOCAL VZV: imm HBsAg: neg HepC: neg RPR/AB-EIA: non-reactive HIV: negative PAP: GC/CT: Negative HSV: both her and partner Genetic testing: [ ] ordered 7 Sept- not done Covid: vaccinated Flu: given 10/31 FAS: Placenta: Posterior, 3VC ISATU: 11.3 EFW: 396g 90%tile 50gm OGCT: 100 TDAP: given 03/20 Breast Pump:03/06 3rd trimester 10.8/32.9%/279 GBS: collected 04/30 Delivery plan: working on plan. Accepts meds. Wants to take placenta home. Contraception: had wanted 6 kids, didn't realize is such a doosey. orthotricyclin lo [employer] Review of Systems General: Complains of fatigue. Denies fevers, chills. Respiratory: Denies shortness of breath. Neurologic: Denies headaches, fainting. Physical Cardiovascular: RRR. Respiratory: no respiratory distress. Vagina: cervix closed 60% high. deep Impression & Recommendations: Problem # 1: Supervision of other high risk , third trimester (ICD- V23.89) (AJD94-K96.893) blood pressure high again today and was over 140 the other night. meeting criteria for gestational htn. vomiting today bad again. recommend labor induction due to gestational htn. to L&D. labs normal. induction process explained. consents signed. will start with misoprostol vaginally. hope for . baby is large on last ultrasound. AC is 99%ile. would not recommend operative vaginal delivery. Other Orders: Visit Code Hold ([facility]-[id number]) GBSPCR,REFLEX IF PEN ALLERGIC (CPT-53115) Gender ID Choose not to disclose P: 0 A: 0 LMP: 08/13/2022 EDC: 05/20/2023 Height: 69 (04/18/2023 1:49:41 PM) Weight: 257.6 Weight (pre-): 255.6 (10/03/2022 9:40:53 AM) Gonnorhea: negative (10/31/2022 8:14:18 AM) Chlamydia: NEGATIVE (10/31/2022 3:06:00 PM) Blood Type: A+ (11/27/2022 8:08:31 AM) Last Antibody Screen: NEGATIVE (02/20/2023 11:14:00 AM) Is pt sexually active? yes Gonnorrhea: negative (10/31/2022 8:14:18 AM) Chlamydia: NEGATIVE (10/31/2022 3:06:00 PM) HIV: negative (11/27/2022 8:13:46 AM) RPR: Non Reactive (11/27/2022 11:53:00 AM)
--- NOTE | 2023-05-02 08:29 | PROVIDER PROGRESS NOTE ---
Labor Progress Note - Uterine Monitoring Uterine Monitoring Mode: positive: External toco Contraction Frequency (min/apart): Irregular Contraction Intensity: positive: Mild - Monitoring Monitor Mode: positive: External ultrasound Heart Rate Baseline: 135 Heart Rate Variability: positive: Moderate (6-25 bmp) Accelerations: positive: Present, 15x15 Decelerations: positive: None Strip Review: positive: Category I - Vaginal Exam Dilation (in cm): FT Effacement (%): 0 Station: -3 - Labor Progress Note Labor Progress Note/Additional Text: Patient comfortable and sleeping through mild contractions. Will continue misoprostol at this time. Discussed CRB if not dilating this afternoon.
[2023-05-02] MEDS: FAMOTIDINE 20 MG/2 ML VIAL IVP SCH (09:24)
[2023-05-02] MEDS: FLUoxetine 10 MG CAPSULE PO SCH (09:30)
[2023-05-02] MEDS: valACYclovir 500 MG TABLET PO SCH (09:30)
[2023-05-02] MEDS: AMPICILLIN 2 GM in SODIUM CHLORIDE 0.9% MINIBAG 100 ML IV ONE (15:42)
[2023-05-02] MEDS ORDERED: METOCLOPRAMIDE 10 MG/2 ML VIAL IVP PRN (16:11)
[2023-05-02] MEDS ORDERED: diphenhydrAMINE INJ 50 MG/ML VIAL IVP PRN (16:11)
[2023-05-02] MEDS ORDERED: LACTATED RINGERS 500 ML IV ONE (16:11)
[2023-05-02] MEDS ORDERED: ePHEDrine 50 MG/ML VIAL IVP PRN (16:11)
[2023-05-02] MEDS ORDERED: NALOXONE 0.4 MG/ML VIAL IVP PRN (16:11)
[2023-05-02] MEDS ORDERED: NALBUPHINE 10 MG/ML AMP IVP PRN (16:11)
--- NOTE | 2023-05-02 16:11 | ANESTHESIA ---
Pre-Anesthesia VS, & Labs - Diagnosis labor pain - Procedure active labor Vital Signs: Temp Pulse Resp BP Pulse Ox O2 Flow Rate 37.2 C 95 16 138/77 H 05/01/23 11:07 05/01/23 11:05/01/23 11:05/01/23 11:07 Height: 5 ft 9 in Weight (kg): 116.573 kg Body Mass Index: 37.9 BMI Classification: Obese - NPO Other - Is Patient ?: Yes - Lab Results Current Lab Results: Laboratory Tests 05/01/23 12:00: Sodium 136, Potassium 3.8, Chloride 104, Carbon Dioxide 24, Anion Gap 8.0, BUN 8, Creatinine 0.5 L, Estimated GFR (MDRD) 143, Glucose 92, Calcium 9.5, Total Bilirubin 0.3, AST 14, ALT 5 L, Alkaline Phosphatase 117, Total Protein 6.3 L, Albumin 3.3, Globulin 3.0, Albumin/Globulin Ratio 1.1 05/01/23 12:00: WBC 12.3 H, RBC 3.81 L, Hgb 11.5 L, Hct 34.5 L, MCV 90.6, MCH 30.2, MCHC 33.3, RDW 13.0, Plt Count 262, MPV 11.0 H, Neut # (Auto) 9.0 H, Lymph # (Auto) 2.4, [place] # (Auto) 0.7, Eos # (Auto) 0.1, Baso # (Auto) 0.0, Absolute Nucleated RBC 0.00, Nucleated RBC % 0.0 05/01/23 12:00: Blood Type A POSITIVE, Antibody Screen NEGATIVE Fish Bones: 05/01/23 12:00 05/01/23 12:00 Home Medications and Allergies Home Medications: Ambulatory Orders Aspirin [Adult Aspirin Regimen] 81 mg PO DAILY 05/01/23 Ferrous Sulfate 325 mg PO DAILY 05/01/23 Magnesium Citrate 250 mg PO DAILY 05/01/23 Pnv No.121/Iron/Folic Acid [ Multivitamin Tablet] 1 each PO DAILY 05/01/23 valACYclovir [Valtrex] 1,000 mg PO DAILY 05/01/23 Active Medications Acetaminophen (Acetaminophen 500 Mg Tablet) 1,000 mg PO Q8HR PRN PRN Reason: Mild Pain or Fever>38C(100.4F) Calcium Carbonate/Glycine (Calcium Carbonate Chew 500 Mg Tablet) 1,000 mg PO Q6HR PRN PRN Reason: Heartburn Carboprost Tromethamine (Carboprost Tromethamine 250 Mcg/Ml Vial) 250 mcg IM .ONCE PRN PRN Reason: Hemorrhage Diphenhydramine HCl (Diphenhydramine Inj 50 Mg/Ml Vial) 25 mg IVP Q6H PRN PRN Reason: Allergy Symptoms Docusate Sodium (Docusate Sodium 100 Mg Capsule) 200 mg PO BID PRN PRN Reason: Constipation Famotidine (Famotidine 20 Mg/2 Ml Vial) 20 mg IVP BID ON LICENSE OF [facility] Last Admin: 05/02/23 09:30 Dose: 20 mg Fentanyl (Fentanyl 100 Mcg/2 Ml Vial) 50 mcg IVP Q1H PRN PRN Reason: Severe Pain (score 7-10) Fluoxetine HCl (Fluoxetine 10 Mg Capsule) 40 mg PO DAILY ON LICENSE OF [facility] Last Admin: 05/02/23 09:30 Dose: 40 mg Hydralazine HCl (Hydralazine Inj 20 Mg/Ml Vial) 5 - 10 mg IVP Q20M PRN; Protocol PRN Reason: SBP> or= 160 OR DBP> or= 110 Hydralazine HCl (Hydralazine Inj 20 Mg/Ml Vial) 10 mg IVP .ONCE PRN; Protocol PRN Reason: SBP> or= 160 OR DBP> or= 110 Lactated Ringer's (Lr) 500 mls @ 999 mls/hr IV PRN PRN PRN Reason: Abdominal Pain Oxytocin/Sodium Chloride (Pitocin/Sodium Chloride) 500 mls @ 999 mls/hr IV PRN PRN; Protocol PRN Reason: POST- HEMORR PREVENTION Tranexamic Acid (Tranexamic 1,000 Mg/100ml-Nacl) 1,000 mg in 100 mls @ 600 ml s/hr IV Q30M PRN PRN Reason: EBL >1200mL and within 3hr Ampicillin Sodium 1 gm/ Sodium (Chloride) 100 mls @ 200 mls/hr IV Q4H ON LICENSE OF [facility] Labetalol HCl (Labetalol 20 Mg/4 Ml Syringe) 20 - 80 mg IVP Q10M PRN; Protocol PRN Reason: SBP> or= 160 OR DBP> or= 110 Labetalol HCl (Labetalol 20 Mg/4 Ml Syringe) 20 mg IVP .ONCE PRN; Protocol PRN Reason: SBP> or= 160 OR DBP> or= 110 Labetalol HCl (Labetalol 20 Mg/4 Ml Syringe) 20 - 40 mg IVP Q10M PRN; Protocol PRN Reason: SBP> or= 160 OR DBP> or= 110 Lidocaine HCl (Lidocaine 1% 20 Ml Mdv) 20 ml ID .ONCE PRN PRN Reason: PERINEAL REPAIR Stop: 05/04/23 11:19 Methylergonovine Maleate (Methylergonovine 0.2 Mg/Ml Vial) 0.2 mg IM .ONCE PRN PRN Reason: Hemorrhage Metoclopramide HCl (Metoclopramide 10 Mg/2 Ml Vial) 10 mg IVP Q6HR PRN PRN Reason: Nausea / Vomiting Misoprostol (Misoprostol 200 Mcg Tablet) 600 mcg BC .ONCE PRN PRN Reason: Hemorrhage Misoprostol (Misoprostol 200 Mcg Tablet) 800 mcg [place] .ONCE PRN PRN Reason: Hemorrhage Nifedipine (Nifedipine 10 Mg Capsule) 10 - 20 mg PO Q20M PRN; Protocol PRN Reason: SBP> or= 160 OR DBP> or= 110 Ondansetron HCl (Ondansetron 4 Mg/2 Ml Vial) 4 mg IVP PRN PRN PRN Reason: Nausea / Vomiting Oxytocin (Oxytocin 10 Unit/Ml Vial) 10 unit IM .ONCE PRN PRN Reason: Step One if no IV access. Sodium Chloride (Sodium Chloride Flush 0.9% 10 Ml Syringe) 10 ml IVP PRN PRN PRN Reason: NEEDED PER PROVIDER ORDERS Sodium Chloride (Sodium Chloride Flush 0.9% 10 Ml Syringe) 10 ml IVP Q8H ON LICENSE OF [facility] Last Admin: 05/01/23 12:30 Dose: 10 ml Terbutaline Sulfate (Terbutaline 1 Mg/Ml Vial) 0.25 mg SUBQ .ONCE PRN PRN Reason: Tachystole Valacyclovir HCl (Valacyclovir 500 Mg Tablet) 1,000 mg PO DAILY ON LICENSE OF [facility] Last Admin: 05/02/23 09:30 Dose: 1,000 mg Fluoxetine HCl [Prozac] 40 mg ORAL ONCE 07/21/22 Aspirin [Adult Aspirin Regimen] 81 mg PO DAILY 05/01/23 Ferrous Sulfate 325 mg PO DAILY 05/01/23 Magnesium Citrate 250 mg PO DAILY 05/01/23 Pnv No.121/Iron/Folic Acid [ Multivitamin Tablet] 1 each PO DAILY 05/01/23 valACYclovir [Valtrex] 1,000 mg PO DAILY 05/01/23 Allergies/Adverse Reactions: Allergies Allergy/AdvReac Type Severity Reaction Status Date / Time No Known Drug Allergies Allergy Verified 02/09/21 04:46 Anes History & Medical History - Anesthetic History Anesthesia Complications: reports: No previous complications Family history of Anesthesia Complications: Denies Family history of Malignant Hyperthermia: Denies - Medical History Cardiovascular: reports: Hypertension Pulmonary: reports: None Gastrointestinal: reports: None Urinary: reports: None Neuro: reports: Seizure disorder (seizure hx as a child, nothing since 10yrs old. no intervention. no medications) Musculoskeletal: reports: None Endocrine/Autoimmune: reports: None Blood Disorders: reports: None Skin: reports: None Smoking Status: Former smoker Psychosocial: reports: No issues indicated History of Cancer?: No Exam General: Alert, Oriented x3, Cooperative Dental: WNL Mouth Openin Fingerbreadth Neck Mobility: Normal Mallampati classification: II Thyromental Distance: 4-6 cm Respiratory: Lungs clear Cardiovascular: Regular rate Plan Anesthesia Type: Epidural Consent for Procedure(s) Verified and Reviewed: Yes Code Status: Attempt Resuscitation ASA classification: 3-Severe systemic disease Is this case an emergency?: No
[2023-05-02] MEDS ORDERED: LIDOCAINE-MPF 2% 5 ML VIAL ONE (18:03)
--- NOTE | 2023-05-02 19:00 | PROVIDER PROGRESS NOTE ---
Labor Progress Note - Uterine Monitoring Uterine Monitoring Mode: positive: External toco Contraction Frequency (min/apart): 2-4 - Monitoring Monitor Mode: positive: External ultrasound Heart Rate Baseline: 125 Heart Rate Variability: positive: Moderate (6-25 bmp) Accelerations: positive: Present, 15x15 Decelerations: positive: None Strip Review: positive: Category I - Vaginal Exam Dilation (in cm): 2 Effacement (%): 50 Station: -2 - Labor Progress Note Labor Progress Note/Additional Text: Patient ruptured spontaneously. Frances but minimal change. Will start oxytocin. Declines epidural at this time.
[2023-05-02] MEDS: AMPICILLIN 1 GM in SODIUM CHLORIDE 0.9% MINIBAG 100 ML IV SCH (19:32)
[2023-05-02] MEDS: LACTATED RINGERS 1,000 ML IV PRN (19:37)
[2023-05-02] MEDS: OXYTOCIN/SODIUM CHLORIDE 500 ML IV SCH (19:37)
[2023-05-02] MEDS: DOCUSATE SODIUM 100 MG CAPSULE PO PRN (20:15)
[2023-05-02] MEDS: ONDANSETRON 4 MG/2 ML VIAL IVP PRN (20:15)
[2023-05-03] MEDS: ROPIVACAINE 0.2% 200 MG/100 ML BAG EP PRN (06:55)
--- NOTE | 2023-05-03 08:22 | PROVIDER PROGRESS NOTE ---
Labor Progress Note - Uterine Monitoring Uterine Monitoring Mode: positive: External toco Contraction Frequency (min/apart): 7-8 - Monitoring Monitor Mode: positive: External ultrasound Heart Rate Baseline: 140 Heart Rate Variability: positive: Moderate (6-25 bmp) Accelerations: positive: Present, 15x15 Decelerations: positive: None Strip Review: positive: Category I - Labor Progress Note Labor Progress Note/Additional Text: Patient received an epidural overnight, had some lightheadedness then a syncopal episode so oxytocin was discontinued. Likely due to hypotension. Oxytocin restarted, but slow pattern and difficult to trace. Will place IUPC for titration.
[2023-05-03] MEDS ORDERED: LIDOCAINE-MPF 2% 5 ML VIAL ONE ×2 (09:08→13:59)
[2023-05-03] MEDS ORDERED: SODIUM CHLORIDE 0.9% 10 ML VIAL IVP ONE ×2 (09:08→13:59)
[2023-05-03] MEDS: ONDANSETRON 4 MG/2 ML VIAL IVP PRN (09:13)
[2023-05-03] MEDS: METOCLOPRAMIDE 10 MG/2 ML VIAL IVP PRN (09:51)
[2023-05-03] MEDS: OXYTOCIN/SODIUM CHLORIDE 500 ML IV PRN (16:57)
[2023-05-03] MEDS ORDERED: lidocaine 1% 20 ML MDV ONE (17:07)
[2023-05-03] MEDS: lidocaine 1% 20 ML MDV ID PRN (17:10)
[2023-05-03] MEDS ORDERED: SIMETHICONE CHEW 80 MG TABLET PO PRN (17:57)
[2023-05-03] MEDS ORDERED: CALCIUM CARBONATE CHEW 500 MG TABLET PO PRN (17:57)
[2023-05-03] MEDS ORDERED: ONDANSETRON 4 MG/2 ML VIAL IVP PRN (17:57)
[2023-05-03] MEDS ORDERED: LACTATED RINGERS 1,000 ML IV SCH (18:00)
--- NOTE | 2023-05-03 18:04 | DELIVERY NOTE ---
Delivery Note - Labor Labor: positive: Augmented by oxytocin - Delivery Method Delivery Method: positive: Spontaneous vaginal delivery - Cervical Ripening Method Cervical Ripening Method: positive: Misoprostil - Presentation Presentation: positive: Vertex - Nuchal Cord Nuchal Cord: positive: None - Anesthetic Anesthetic Type: - Amniotic Fluid Description Amniotic Fluid Description: positive: Clear - Episiotomy Type Episiotomy Type: positive: None - Laceration Laceration: positive: 2nd degree - Suture Suture Type: positive: Vicryl Suture Size: positive: 3-0 - Delivery Outcome Delivery Outcome: positive: Livebirth - [place] : positive: Placed in direct skin contact with mother, Suctioned, Bulb syringe, Stimulated, [place] used, Warmer used, Other (CPAP) sex: positive: Female - Cord Cord: positive: 3 vessels - Placenta Placenta: positive: Intact - Estimated Blood Loss Estimated Blood Loss (in cc): 400 - Post Delivery Events Post Delivery Events: positive: No post delivery events - Delivery Comments (Free Text/Narrative) Delivery Comments (Free Text/Narrative): Preoperative Diagnoses 37 weeks gestation Gestational hypertension Postoperative Diagnoses Same Deliver live valdes Status post continuous vaginal delivery Delivery Summary: Patient was placed in the dorsal lithotomy position. Upon maternal pushing the head was delivered atraumatically followed by the anterior shoulder, posterior shoulder, then the remainder of the infant's body. A female infant was delivered with APGARS of 5 at 1 minute and 9 at 5 minutes. The infant was placed on its mother's chest. After the cord finished pulsating, the umbilical cord was clamped times two and cut. Baby was taken to the warmer for resuscitation and required CPAP before being brought back to the mother. The placenta delivered intact with three vessel cord. Placenta was not sent to pathology. Thirty units of Pitocin were added to the IV fluid and allowed to run freely. Uterine massage was performed until uterus was deemed firm. Upon inspection of the perineum, secondary midline laceration was noted. This was repaired with a running suture of 3-0 Vicryl. She required 1 additional stitch in a [id number] fashion to become hemostatic. Uterus again massaged and found to be firm. Needle and sponge counts were correct. Patient was stable and allowed to recover in L&D room. Infant was stable and remained in room with mother. weight is pending at this time.
[2023-05-03] MEDS: IBUPROFEN 600 MG TABLET PO SCH (20:54)
[2023-05-03] MEDS: ACETAMINOPHEN 500 MG TABLET PO SCH (20:55)
[2023-05-04] MEDS: FAMOTIDINE 20 MG TABLET PO SCH (09:00)
--- NOTE | 2023-05-04 09:30 | DISCHARGE SUMMARY ---
<Paxton Osman - Last Filed: 05/04/23 16:19> Discharge Summary Admit Date: 05/01/23 Discharge Date: 05/04/23 Discharging Provider: Paxton Osman MD Code Status: Attempt Resuscitation Condition at Discharge: Good Discharge Disposition: 01 Home, Self Care - DIAGNOSES Admission Diagnoses: 37 weeks gestation Gestational hypertension Anxiety/depression Obesity Discharge Diagnoses with Status of Each Condition: 37 weeks gestation Gestational hypertension Anxiety/depression Obesity Status post spontaneous vaginal delivery Delivery of live valdes - HPI History of Present Illness: Subjective Patient reports she is doing well. Lochia appropriate. Denies heavy bleeding. Ambulating. Pelvic and abdominal pain well-controlled. Tolerating oral intake. Diet: Regular. Voiding without difficulty. Passing flatus. Denies BM. Patient is bonding with baby in room Breast feeding going well. Denies feeling lightheaded, dizzy or excessively fatigued. Control: OCPs Objective General: Alert, oriented, no apparent distress. Cardiovascular: Regular rate. Regular rhythm. Lungs: No increased work of breathing. Abdomen: Uterus firm. Below umbilicus. No guarding or rebound. Extremities: No pain on palpation. No cords palpated. Distal pulses intact. - HOSPITAL COURSE Hospital Course: Patient was admitted for induction of labor secondary to gestational hypertension at term. She had misoprostol for cervical ripening and had spontaneous rupture membranes. She had oxytocin for labor augmentation. She received ampicillin for GBS sepsis prophylaxis. She progressed to complete and had an uneventful second stage and delivery of a healthy liveborn female. course was unremarkable and she was discharged on day 2. - ALLERGIES Allergies/Adverse Reactions: Allergies Allergy/AdvReac Type Severity Reaction Status Date / Time No Known Drug Allergies Allergy Verified 02/09/21 04:46 - MEDICATIONS Home Medications: Ambulatory Orders Medication Instructions Recorded Confirmed Fluoxetine HCl [Prozac] 40 mg ORAL ONCE 07/21/22 05/01/23 Docusate Sodium 100Mg Capsule 100 - 200 mg PO BID PRN #60 cap 11/27/22 05/01/23 [Colace 100Mg Capsule] Famotidine [Pepcid] 20 mg PO BID PRN #90 tablet 11/27/22 05/01/23 Ferrous Sulfate 325 mg PO DAILY 05/01/23 05/01/23 Magnesium Citrate 250 mg PO DAILY 05/01/23 05/01/23 Pnv No.121/Iron/Folic Acid 1 each PO DAILY 05/01/23 05/01/23 [ Multivitamin Tablet] valACYclovir [Valtrex] 1,000 mg PO DAILY 05/01/23 05/01/23 Acetaminophen [Tylenol] 1,000 mg PO Q8H tab 05/05/23 Calcium Carbonate [Tums (Calcium 500 mg PO TID PRN tab 05/05/23 Carbonate 500mg)] Docusate Sodium 100Mg Capsule 100 mg PO BID PRN cap 05/05/23 [Colace 100Mg Capsule] FLUoxetine [PROzac] 40 mg PO DAILY cap 05/05/23 Famotidine [Pepcid] 20 mg PO BID tab 05/05/23 Ibuprofen [Motrin] 600 mg PO Q6H #30 tab 05/05/23 - LABS Result Diagrams: 05/01/23 12:00 05/01/23 12:00 - FOLLOW UP Follow Up: [facility] - TIME SPENT Time Spent in Discharge (Minutes): 30 <Gloria Perez - Last Filed: 05/05/23 09:50> Discharge Summary Discharge Date: 05/05/23 Discharging Provider: Gloria Perez MD - PHYSICAL EXAM AT DISCHARGE General Appearance: positive: No acute distress Respiratory: positive: No respiratory distress Cardiovascular: positive: Regular rate & rhythm Extremities: positive: Non-tender - LABS Result Diagrams: 05/01/23 12:00 05/01/23 12:00
--- NOTE | 2023-05-04 09:33 | Discharge Plan ---
Discharge Plan Problem Reviewed?: Yes Disposition: Home, Self Care Condition: Good Diet: Regular Activity Restrictions: No Restrictions Shower Restrictions: No Instruction Topics: Vaginal After, Depression No Smoking: If you smoke, Please STOP! Call for help. Follow-up with: Paxton Osman MD [Provider Admit Priv/Credential] -
--- NOTE | 2023-05-04 16:21 | PROVIDER PROGRESS NOTE ---
Subjective - Subjective Subjective: Subjective Patient reports she is doing well. Lochia appropriate. Denies heavy bleeding. Ambulating. Pelvic and abdominal pain well-controlled. Tolerating oral intake. Diet: Regular. Voiding without difficulty. Passing flatus. Denies BM. Patient is bonding with baby in room Breast feeding going well. Denies feeling lightheaded, dizzy or excessively fatigued. Control: OCPs Objective General: Alert, oriented, no apparent distress. Cardiovascular: Regular rate. Regular rhythm. Lungs: No increased work of breathing. Abdomen: Uterus firm. Below umbilicus. No guarding or rebound. Extremities: No pain on palpation. No cords palpated. Distal pulses intact. Assessment and Plan day 1. -Routine care -Anticipate discharge tomorrow Gestational hypertension -mildly elevated, but nonsevere blood pressures. Depression -Continue home fluoxetine Objective - Vital Signs/Intake & Output Vital Signs: Vital Signs x48h Temp Pulse Resp BP Pulse Ox 05/04/23 09:40 99.1 F 90 16 143/73 H 96 Intake & Output: Intake & Output 05/01/23 05/02/23 05/03/23 05/05/23 23:59 23:59 23:59 00:59 Intake Total 0150.512 3348.117 Output Total 202 1800 Balance 7544.411 0303.117 - Lab Results Fish Bones: 05/01/23 12:00 05/01/23 12:00
[2023-05-04] MEDS: DOCUSATE SODIUM 100 MG CAPSULE PO PRN (21:31)
[2023-05-05 09:49] VITALS: BP 136/78; O2SAT 98
[2023-05-05] MEDS: MEASLES,MUMPS & RUBELLA VACC 0.5 ML VIAL SUBQ ONE (11:50)
--- NOTE | 2023-05-05 14:47 | Labor Flowsheet ---
Labor Flowsheet Datetime Report Generated by CPN: 05/05/2023 14:47 Datetime: 05/05/2023 09:38 VITAL SIGNS NBP Sys/Roro/Mean (mmHg): 136 : 78 : 89 Pulse: 72 Datetime: 05/05/2023 03:39 SpO2 (%): 95 Datetime: 05/03/2023 17:30 Stage of : PAIN Pain Scale: 2 Datetime: 05/03/2023 17:25 LaborFlag: Labor Datetime: 05/03/2023 17:08 Patient Care Comments: lidocaine for repair per provider Datetime: 05/03/2023 16:50 UTERINE ACTIVITY Monitor Mode: Internal Frequency (min): 1.5-3 Quality: Strong Duration (sec): 60-90 Pattern: Normal: <= 5 Contractions in 10 Minutes Resting Tone (Palpate): Relaxed FHR Baseline Rate : 140 Variability: Moderate 6-25 bpm Accelerations: 15X15 Decelerations: Early; Variable Category: Category II Comments: decels with pushing Datetime: 05/03/2023 16:30 FHR Baseline Changes: No Baseline Change Datetime: 05/03/2023 15:44 I/O Interventions: [place] Discontinued Datetime: 05/03/2023 15:07 COMMUNICATION Communication: Call/Page Placed to Provider Datetime: 05/03/2023 14:49 Pain Assessment Comments: c/o pain in right hip 10/10, pt. placed in right lateral and right of way man pressed. Will cont. to monitor. Datetime: 05/03/2023 14:39 Communication Comments: text to provider regarding UOP, Pain and pitocin. Will cont. to monitor. Datetime: 05/03/2023 14:30 MEDICATIONS Pitocin (milliunits): Increased to @ 18 Datetime: 05/03/2023 14:29 [place] Units (mmHg): 140 Datetime: 05/03/2023 14:15 Temperature (C): 37.3 ASSESSMENT A Monitor Mode: External US Datetime: 05/03/2023 14:04 VAGINAL EXAM Dilatation (cm): 10.0 Effacement (%): 100 Station: 0 Datetime: 05/03/2023 13:55 Anesthesia Comments: INSPECTOR MECHANICAL at bedside Datetime: 05/03/2023 13:28 PATIENT CARE Patient Position/Activity: Left Lateral Datetime: 05/03/2023 13:25 Exam by: [email or web address] Datetime: 05/03/2023 11:59 Monitor Interventions for UA: IUPC Inserted Pitocin Checklist: Uterus Palpates Soft between Contractions Datetime: 05/03/2023 11:37 Antibiotics: Ampicillin IV 1 Gm Datetime: 05/03/2023 11:29 Monitor Interventions for FHR: Ultrasound Adjusted Datetime: 05/03/2023 11:00 Vaginal Exam Comments: no change. Pt. stated she needed to push "now" Datetime: 05/03/2023 10:21 Vaginal Bleeding: Normal Show Datetime: 05/03/2023 09:55 Hygiene: [facility] Care Datetime: 05/03/2023 09:51 Antiemetics/Antacids: Reglan 10 mg IV Datetime: 05/03/2023 09:21 Pain Goal: 4 Datetime: 05/03/2023 09:16 Vital Sign Comments: Axillary Datetime: 05/03/2023 08:13 Cervix, Consistency: Soft Cervix, Position: Midposition Datetime: 05/03/2023 05:46 Provider Reviewed Strip: Yes Provider Notified (Name): J Dawson Notification Reason: Status Update; Status; Labor Status; Uterine Activity; Maternal Vital Si gn Change Datetime: 05/03/2023 05:37 Actions for Decelerations: IV Bolus Datetime: 05/03/2023 04:01 Respirations: 18 Temperature Route: Oral Pain Presence: None/Denies ANESTHESIA Anesthesia Plans: Epidural Anesthesia Level Check: T8- Ribs Datetime: 05/03/2023 00:49 Epidural Procedure: Loading Dose; Completed Epidural Procedure Other: Pump Started Datetime: 05/03/2023 00:30 PROCEDURE TIME OUT Procedure Verify: Correct Patient Identity; Correct Side and Site are Marked; Accurate Procedure Co nsent Form; Agreement on Procedure to be Done; Correct Patient Position Epidural Positioning: Sitting Datetime: 05/02/2023 22:00 Contraction Comments: Pt verbalized not decreasing. Palpation and toco adjustment. Pt moving with contractions. Vomitting. Datetime: 05/02/2023 13:52 Membrane Status: Ruptured Membranes Rupture Method: Spontaneous Amniotic Fluid Color: Clear Amniotic Fluid Amount: Small Datetime: 05/02/2023 13:28 Membrane Comments: Possible rupture. Pt felt trickle. Put on a pad. Blood tinge fluid collected. Datetime: 05/02/2023 09:37 Cervical Ripening Agents: Cytotec @ 25mcg Datetime: 05/02/2023 09:33 Medication Comments: Valtrex/fluoxetine Datetime: 05/02/2023 06:00 MATERNAL ASSESSMENT Level of Consciousness: Alert Headache: Denies Breath Sounds, Left: Clear and Equal Breath Sounds, Right: Clear and Equal Nausea/Vomiting: Denies RUQ Epigastric Pain: Denies TEACHING Plan of Care: Plan of Care Discussed; Induction Labor/Induction: Cervical Ripening; Induction Pain Management: Comfort Measures Medications: Cervical Ripening Datetime: 05/02/2023 05:31 Pain Type: Contraction Pain Location: Abdomen; Back Pain Coping: Talking Through Contractions; Breathing Through Contractions; Declines Medication or E pidural Comfort Measures: Breathing/Relaxation Datetime: 05/02/2023 04:30 Maternal Comments: patient sleeping comfortably on left side
== END 2023-05-05 14:00 | disposition home or self-care (01) | DRG 806 ==
LOC: WFO 10:41 → FBP 10:43 → WFO 11:17 → FBP 11:18
PROVIDERS: ADMIT Obstetrics & Gynecology; ATTEND Obstetrics & Gynecology
PROC: 3E0DXGC Introduction of Other Therapeutic Substance into Mouth and Pharynx, External Approach (ICD-10-PCS; 2023-05-02)
PROC: 4A1HXCZ Monitoring of Products of Conception, Cardiac Rate, External Approach (ICD-10-PCS; 2023-05-02)
PROC: 10E0XZZ Delivery of Products of Conception, External Approach (ICD-10-PCS; principal; 2023-05-03)
PROC: 0KQM0ZZ Repair Perineum Muscle, Open Approach (ICD-10-PCS; 2023-05-03)
DX: O13.4 Gestational [pregnancy-induced] hypertension without significant proteinuria, complicating childbirth (principal); O98.32 Other infections with a predominantly sexual mode of transmission complicating childbirth; Z37.0 Single live birth; Z3A.37 37 weeks gestation of pregnancy; A60.04 Herpesviral vulvovaginitis; O99.02 Anemia complicating childbirth; O70.1 Second degree perineal laceration during delivery; O99.42 Diseases of the circulatory system complicating childbirth; I95.9 Hypotension, unspecified; O99.214 Obesity complicating childbirth; O21.0 Mild hyperemesis gravidarum; O99.344 Other mental disorders complicating childbirth; F32.A Depression, unspecified; F41.9 Anxiety disorder, unspecified; Z86.69 Personal history of other diseases of the nervous system and sense organs
CPT/HCPCS: 59409; 80053; 82570; 84156; 85025; 86850; 86900; 86901; 87797; A9270; J2765; J7120; 87081